=== PATIENT | male | born 1975 | race Caucasian/White ===

== ENCOUNTER 2018-06-02 20:24 | Emergency (ER) | payer OTHER ==
[~2018-06-02] VITALS: Ht 188 cm; Wt 108.9 kg
[~2018-06-02 20:24] MED LIST: DOXY100 PO; HYDACE5 PO
[2018-06-02] MEDS ORDERED: GEMF600 PO (20:58)
[2018-06-02] MEDS ORDERED: METF500C PO ×2 (20:58)
[2018-06-02] MEDS ORDERED: METO25ER PO (20:58)
[2018-06-02] MEDS ORDERED: NAPR500 PO (20:59)
[2018-06-02] MEDS ORDERED: IBUP600 PO (21:17)
[2018-06-02] MEDS ORDERED: HYDR1TAB94 PO (21:17)
== END 2018-06-02 21:31 | disposition home or self-care (01) ==
LOC: ER 20:24
DX: S83.91XA Sprain of unspecified site of right knee, initial encounter (principal); V19.9XXA Pedal cyclist (driver) (passenger) injured in unspecified traffic accident, initial encounter; E11.9 Type 2 diabetes mellitus without complications; I10 Essential (primary) hypertension; E78.5 Hyperlipidemia, unspecified
CPT/HCPCS: 73562-RT; 99283-25

== ENCOUNTER 2019-11-20 20:32 | Emergency (ER) | payer OTHER ==
[~2019-11-20] VITALS: Ht 188 cm; Wt 90.7 kg
[~2019-11-20 20:32] MED LIST changes: +GEMF600 PO; +HYDR1TAB94 PO; +IBUP600 PO; +METF500C PO; +METO25ER PO; +NAPR500 PO
== END 2019-11-20 23:36 | disposition left against medical advice (07) ==
LOC: ER 20:32
DX: Z53.21 Procedure and treatment not carried out due to patient leaving prior to being seen by health care provider (principal)

== ENCOUNTER 2021-07-03 13:23 | Inpatient (IN) | payer OTHER ==
[~2021-07-03] VITALS: Ht 182.9 cm; Wt 90.0 kg
[2021-07-03 13:45] LABS: Calcium, Ionized (POC) 1.55 mmol/L (1.10-1.46); Chloride (POC) 109 mmol/L (98-108); Creatinine (POC) 0.9 mg/dL (0.8-1.3); Glucose (ISTAT POC) >700 mg/dL (70-99); Hemoglobin (POC) 16.7 g/dL (13.5-17.5); Potassium (POC) <2.0 mmol/L (3.5-5.5); Sodium (POC) 147 mmol/L (135-148); Total CO2 (POC) 16 mmol/L (21-32)
[2021-07-03 13:51] LABS: Base Excess Venous -18.3 mmol/L; PCO2 Venous 47.5 mmHg (38-42); pH Blood Venous 7.03 (7.34-7.37)
[2021-07-03 13:53] LABS: Hematocrit 47.4 % (37.0-53.0); Hemoglobin 16.3 g/dL (13.5-17.5); Mean Corpuscular HGB 29.8 pg (26.0-34.0); Mean Corpuscular HGB Conc 34.4 g/dL (31.5-36.5); Mean Corpuscular Volume 87 fL (80-100); Mean Platelet Volume 10.3 fL (9.1-12.4); Platelet Count 486 K/mm3 (150-400); RDW Coefficient Variation 12.4 % (11.7-14.2); RDW Standard Deviation 39.4 fL (35.1-46.3); Red Blood Cell Count 5.47 M/mm3 (4.30-5.90); White Blood Cell Count 23.18 K/mm3 (4.00-11.30)
[2021-07-03 14:22] LABS: Alanine Aminotransfer (ALT/SGP 32 U/L (12-78); Albumin, Blood 2.6 g/dL (3.4-5.0); Albumin/Globulin Ratio 0.4 (0.8-1.8); Alk Phos 331 U/L (50-136); Anion Gap 24 mmol/L (6-16); Aspartate Aminotrans (AST/SGOT 35 U/L (12-37); Bilirubin, Total 0.8 mg/dL (0.1-1.0); Blood Urea Nitrogen 35 mg/dL (8-24); Bun/Creatinine Ratio 44.2 (12.0-20.0); CO2, Blood 13 mmol/L (21-32); Calcium, Blood 11.7 mg/dL (8.5-10.1); Chloride, Blood 106 mmol/L (98-108); Creatinine, Blood 0.79 mg/dL (0.60-1.20); Globulin, Blood 6.2 g/dL (2.2-4.0); Glomerular Filtration Rate >60 (60-); Glucose, Blood 1013 mg/dL (70-99); Potassium, Blood 1.9 mmol/L (3.5-5.5); Sodium, Blood 143 mmol/L (136-145); Total Protein, Blood 8.8 g/dL (6.4-8.2)
[2021-07-03 15:00] LABS: Ethanol (Alcohol), Blood, Med <3 mg/dL; Magnesium, Blood 3.5 mg/dL (1.6-2.4)
[2021-07-03 15:03] LABS: Beta-hydroxybutyrate 106.6 mg/dL (0.2-2.8)
[2021-07-03 15:43] LABS: BAND PERCENT MAN 30 % (0-8); BASOPHILS PERCENT MAN 0 % (0-2); EOSINOPHILS PERCENT MAN 0 % (0-6); LYMPHOCYTES ABSOLUTE MAN 0.69 K/mm3 (0.84-5.20); LYMPHOCYTES PERCENT MAN 3 % (21-46); METAMYELOCYTE ABSOLUTE MAN 1.15 K/mm3 (0.00-0.00); METAMYELOCYTE PERCENT MAN 5 % (0-0); MONOCYTES ABSOLUTE MAN 2.08 K/mm3 (0.16-1.47); MONOCYTES PERCENT MAN 9 % (4-13); MYELOCYTE ABSOLUTE MAN 0.23 K/mm3 (0.00-0.00); MYELOCYTE PERCENT MAN 1 % (0-0); NEUTROPHILS ABSOLUTE MAN 18.77 K/mm3 (1.96-9.15); PROMYELOCYTE ABSOLUTE MAN 0.23 K/mm3 (0.00-0.00); PROMYELOCYTE PERCENT MAN 1 % (0-0); SEG NEUTROPHILS PERCENT MAN 51 % (41-73); TOTAL CELLS COUNTED 100
[2021-07-03 17:09] LABS: Influenza A, PCR NEGATIVE (NEGATIVE); Influenza B, PCR NEGATIVE (NEGATIVE); Resp Syncytial Virus, PCR NEGATIVE (NEGATIVE); SARS-Cov-2 (COVID-19) PCR, MMC NEGATIVE (NEGATIVE)
[2021-07-03 17:36] LABS: Base Excess Venous -12.7 mmol/L; Bicarbonate Venous 15.5 mmol/L (24.0-30.0); PCO2 Venous 29.5 mmHg (38-42); pH Blood Venous 7.28 (7.34-7.37)
--- NOTE | 2021-07-03 17:47 | NUR ---
ADMISSION PATIENT ARRIVED TO UNIT AT 1711 VIA GURNEY WITH 4 RN ASSIST TO BED. PATIENT WITH EYES OPEN, TURNING HEAD TO RIGHT SIDE. THE ONLY VERBAL RESPONSE IS "DON'T DO THAT". PATIENT DOES NOT FOLLOW COMMANDS, NO OTHER PURPOSEFUL MOVEMENTS NOTED. VITALS SINUS TACH 130'S, 02 99% ON RA. VBG OBTAINED WITH PH TRENDING TOWARDS NORMAL RESULT. AWAITING OTHER LABS TO RESULT. BICARB INFUSING AT 350ML/HR, NS BOLUS, KPHOS BAG INFUSING AT 126ML/HR, AND INSULIN AT 3.4 UPON ARRIVAL. POWER GLIDE TO RUE, PIV TO LEFT AC, AND NEW 20G PIV PLACED TO LFA. BRAVO CATHETER WITH 1800ML OUT OF CLEAR, YELLOW URINE. FAMILY WAS NOTIFIED BY ED RN OF PATIENT'S STATUS AND ADMISSION TO ICU. DR. FERNANDEZ TO ROOM, REVIEWED PATIENT'S STATUS AND FLUIDS, RECEIVED ORDERS FOR ATIVAN, FENTANYL AND CHANGED LABS TO EVERY 2 HOURS. CURRENT FLUIDS TO REMAIN THE SAME, A TOTAL OF 3 NS BOLUS TO INFUSE. WILL CONTINUE TO MONITOR PATIENT AND REPORT TO ONCOMING RN.
[2021-07-03 18:22] LABS: Glucose, Blood 884 mg/dL (70-99)
[2021-07-03 18:23] LABS: Anion Gap 20 mmol/L (6-16); Blood Urea Nitrogen 40 mg/dL (8-24); Bun/Creatinine Ratio 46.7 (12.0-20.0); CO2, Blood 16 mmol/L (21-32); Calcium, Blood 10.5 mg/dL (8.5-10.1); Chloride, Blood 115 mmol/L (98-108); Creatinine, Blood 0.86 mg/dL (0.60-1.20); Glomerular Filtration Rate >60 (60-); Glucose, Blood 856 mg/dL (70-99); Potassium, Blood 1.8 mmol/L (3.5-5.5); Sodium, Blood 151 mmol/L (136-145)
[2021-07-03 18:31] LABS: Source, Urine Foley catheter
[2021-07-03 19:00] LABS: Bilirubin, Urine Neg (Neg); Blood, Urine 4+ (Neg); Glucose Qualitative, Urine 4+ (Neg); Ketones, Urine 4+ (Neg); Leukocyte Esterase, Urine 2+ (Neg); Nitrite, Urine Pos (Neg); Protein, Urine 2+ (Neg); Urobilinogen, Urine NORM (Normal)
[2021-07-03 19:02] LABS: Appearance, Urine Clear (Clear); Color, Urine Pale Yellow (P-Yellow)
[2021-07-03 19:04] LABS: Squamous Epithelial Cells Few /hpf (Few)
[2021-07-03 19:05] LABS: Amorphous Light (0-Heavy); Bacteria Few /hpf; Mucus Light (0-Heavy)
[2021-07-03 19:47] LABS: Base Excess Venous -3.7 mmol/L; Bicarbonate Venous 21.9 mmol/L (24.0-30.0); PCO2 Venous 35.2 mmHg (38-42); pH Blood Venous 7.39 (7.34-7.37)
[2021-07-03 20:24] LABS: Anion Gap 15 mmol/L (6-16); Blood Urea Nitrogen 38 mg/dL (8-24); Bun/Creatinine Ratio 50.9 (12.0-20.0); CO2, Blood 21 mmol/L (21-32); Calcium, Blood 9.4 mg/dL (8.5-10.1); Chloride, Blood 123 mmol/L (98-108); Creatinine, Blood 0.75 mg/dL (0.60-1.20); Glomerular Filtration Rate >60 (60-); Glucose, Blood 640 mg/dL (70-99); Phosphorus, Blood 0.8 mg/dL (2.5-4.9); Potassium, Blood 1.7 mmol/L (3.5-5.5); Sodium, Blood 159 mmol/L (136-145)
[2021-07-03 21:08] LABS: Glucose, Blood 608 mg/dL (70-99)
[2021-07-03 21:51] LABS: Base Excess Venous 2.4 mmol/L; Bicarbonate Venous 26.7 mmol/L (24.0-30.0); PCO2 Venous 36.1 mmHg (38-42); pH Blood Venous 7.47 (7.34-7.37)
[2021-07-03 22:27] LABS: Anion Gap 10 mmol/L (6-16); Blood Urea Nitrogen 37 mg/dL (8-24); Bun/Creatinine Ratio 48.2 (12.0-20.0); CO2, Blood 25 mmol/L (21-32); Calcium, Blood 9.5 mg/dL (8.5-10.1); Chloride, Blood 125 mmol/L (98-108); Creatinine, Blood 0.77 mg/dL (0.60-1.20); Glomerular Filtration Rate >60 (60-); Glucose, Blood 557 mg/dL (70-99); Phosphorus, Blood 0.7 mg/dL (2.5-4.9); Potassium, Blood 1.9 mmol/L (3.5-5.5); Sodium, Blood 160 mmol/L (136-145)
--- NOTE | 2021-07-03 23:05 | NUR ---
ASSUMED CARE AT 1900 PT LAYING IN BED WITH HIS EYES OPEN BUT THEY ARE DARTING AROUND THE ROOM; HE DOES NOT MAKE EYE CONTACT; DOES NOT FOLLOW DIRECTIONS; SPEECH UNABLE TO MAKE OUT WORDS MOST OF THE TIME. PAINFUL REACTION AND GRIMICING DURING REPOSITIONING. SPO2 >96% ON RA; RR 30'S. AFEBRILE. HR 130'S. SBP 130-140'S. BRAVO IN PLACE AND DRAINING. SEE SHIFT ASSESSMENT FOR FULL ASSESSMENT DR CEJA CALLED AT 1929 REGARDING BICARB GTT; BICARB D/C AND 1/2 NS STARTED. AT [address] CEJA REGARDING CRITCAL LAB RESULTS OF POTASSIUM, GLUCOSE, AND PHOS; NEW ORDERS PROVIDED FOR 1/2NS WITH 20MEQ OF KCL AND 30MM KPHOS. SEE FLOWSHEET FOR INSULIN TITRATION.
[2021-07-03 23:44] LABS: Bicarbonate Venous 29.6 mmol/L (24.0-30.0); PCO2 Venous 36.6 mmHg (38-42); pH Blood Venous 7.51 (7.34-7.37)
[2021-07-04 00:09] LABS: Anion Gap 8 mmol/L (6-16); Blood Urea Nitrogen 36 mg/dL (8-24); Bun/Creatinine Ratio 47.9 (12.0-20.0); CO2, Blood 28 mmol/L (21-32); Calcium, Blood 9.7 mg/dL (8.5-10.1); Chloride, Blood 126 mmol/L (98-108); Creatinine, Blood 0.75 mg/dL (0.60-1.20); Glomerular Filtration Rate >60 (60-); Glucose, Blood 489 mg/dL (70-99); Phosphorus, Blood 1.1 mg/dL (2.5-4.9); Sodium, Blood 162 mmol/L (136-145)
--- NOTE | 2021-07-04 00:57 | NUR ---
UPDATE CRITICAL LABS POTASSIUM AND SODIUM CALLED TO DR RIVERO. NEW ORDERS PROVIDED FOR 2L LACTATED RINGER BOLUS FOLLOWED BY A LR GTT, 60MEQ OF KCL. PT ALSO HAS FEVER OF 103.0; FAN AND ICE PACKS PLACED ON PT; NEW ORDERS FOR RECTAL TYLENOL AND BLOOD CULTURES PROVIDED. DR RIVERO ALSO STATED THAT ONCE GLUCOSE IS <250 TO START D5 GTT. WILL CONT TO MONITOR.
[2021-07-04 01:33] LABS: Base Excess Venous 5.7 mmol/L; Bicarbonate Venous 29.6 mmol/L (24.0-30.0); PCO2 Venous 34.6 mmHg (38-42); PO2 Venous 181 mmHg (38-42); pH Blood Venous 7.52 (7.34-7.37)
[2021-07-04 02:01] LABS: Anion Gap 7 mmol/L (6-16); Blood Urea Nitrogen 37 mg/dL (8-24); Bun/Creatinine Ratio 47.1 (12.0-20.0); CO2, Blood 28 mmol/L (21-32); Calcium, Blood 9.1 mg/dL (8.5-10.1); Chloride, Blood 129 mmol/L (98-108); Creatinine, Blood 0.79 mg/dL (0.60-1.20); Glomerular Filtration Rate >60 (60-); Glucose, Blood 440 mg/dL (70-99); Phosphorus, Blood 1.3 mg/dL (2.5-4.9); Sodium, Blood 164 mmol/L (136-145)
[2021-07-04 03:54] LABS: Base Excess Venous 5.4 mmol/L; Bicarbonate Venous 28.2 mmol/L (24.0-30.0); PCO2 Venous 44.7 mmHg (38-42); pH Blood Venous 7.43 (7.34-7.37)
[2021-07-04 04:00] LABS: Hematocrit 33.4 % (37.0-53.0); Hemoglobin 12.1 g/dL (13.5-17.5); Mean Corpuscular HGB 29.6 pg (26.0-34.0); Mean Corpuscular HGB Conc 36.2 g/dL (31.5-36.5); Mean Corpuscular Volume 82 fL (80-100); Mean Platelet Volume 9.8 fL (9.1-12.4); Platelet Count 337 K/mm3 (150-400); RDW Standard Deviation 35.7 fL (35.1-46.3); Red Blood Cell Count 4.09 M/mm3 (4.30-5.90); White Blood Cell Count 12.26 K/mm3 (4.00-11.30)
[2021-07-04 04:13] LABS: International Normalized Ratio 1.17; Prothrombin Time Results 12.2 Sec (9.7-11.5)
[2021-07-04 04:21] LABS: Beta-hydroxybutyrate 16.6 mg/dL (0.2-2.8); Magnesium, Blood 2.4 mg/dL (1.6-2.4)
[2021-07-04 04:29] LABS: Base Excess Venous 4.4 mmol/L; Bicarbonate Venous 27.5 mmol/L (24.0-30.0); pH Blood Venous 7.38 (7.34-7.37)
[2021-07-04 04:30] LABS: Alanine Aminotransfer (ALT/SGP 24 U/L (12-78); Albumin, Blood 1.6 g/dL (3.4-5.0); Albumin/Globulin Ratio 0.4 (0.8-1.8); Alk Phos 190 U/L (50-136); Anion Gap 8 mmol/L (6-16); Aspartate Aminotrans (AST/SGOT 30 U/L (12-37); Bilirubin, Total 0.6 mg/dL (0.1-1.0); Blood Urea Nitrogen 35 mg/dL (8-24); Bun/Creatinine Ratio 42.5 (12.0-20.0); CO2, Blood 29 mmol/L (21-32); Calcium, Blood 8.8 mg/dL (8.5-10.1); Chloride, Blood 128 mmol/L (98-108); Creatinine, Blood 0.82 mg/dL (0.60-1.20); Globulin, Blood 4.2 g/dL (2.2-4.0); Glomerular Filtration Rate >60 (60-); Glucose, Blood 421 mg/dL (70-99); Phosphorus, Blood 2.6 mg/dL (2.5-4.9); Potassium, Blood 2.2 mmol/L (3.5-5.5); Sodium, Blood 165 mmol/L (136-145)
[2021-07-04 04:32] LABS: Total Protein, Blood 5.8 g/dL (6.4-8.2)
[2021-07-04 05:35] LABS: BAND PERCENT MAN 24 % (0-8); BASOPHILS PERCENT MAN 0 % (0-2); EOSINOPHILS ABSOLUTE MAN 0.12 K/mm3 (0.00-0.68); EOSINOPHILS PERCENT MAN 1 % (0-6); LYMPHOCYTES ABSOLUTE MAN 0.12 K/mm3 (0.84-5.20); LYMPHOCYTES PERCENT MAN 1 % (21-46); METAMYELOCYTE ABSOLUTE MAN 0.49 K/mm3 (0.00-0.00); METAMYELOCYTE PERCENT MAN 4 % (0-0); MONOCYTES ABSOLUTE MAN 0.49 K/mm3 (0.16-1.47); MONOCYTES PERCENT MAN 4 % (4-13); MYELOCYTE ABSOLUTE MAN 0.12 K/mm3 (0.00-0.00); MYELOCYTE PERCENT MAN 1 % (0-0); NEUTROPHILS ABSOLUTE MAN 10.91 K/mm3 (1.96-9.15); SEG NEUTROPHILS PERCENT MAN 65 % (41-73); TOTAL CELLS COUNTED 100
[2021-07-04 06:49] LABS: Osmolality, Serum 364 mos/KG (275-300)
--- NOTE | 2021-07-04 07:03 | NUR ---
END OF SHIFT SUMMARY PT HAS SLIGHT IMPROVEMENT IN MENTATION; IS FORMING WORDS AND ANSWERING OCCATIONAL QUESTIONS WITH ONE WORD ANSWERS. FENTANYL GIVEN X1 FOR PAIN "EVERYWHERE". MAX TEMP 103; ICE PACKS AND FAN IN PLACE AND HELPING; 101.2. SPO2 >90% ON RA. HR 120-130'S. SBP 110-130. BRAVO IN PLACE WITH 2.9L OUTPUT. INSULIN INFUSING AT 6UNITS/HR. LR INFUSING AT 150ML/HR. LAST BAG OF KCL INFUSING AT THIS TIME. REPORT GIVEN TO WIL Longo
--- NOTE | 2021-07-04 07:07 | NUR ---
Received report from Danielle OLIVIA. Patient laying supine in bed and awake. Speech is slurred and very sensitive to touch as he yells out when barely moving him. His hand have multiple burn grey bilaterally. His LE mottled bilaterally. He is on RA and sats 92-95%. He is ST 120's. He has 16fr torres draining to gravity sruthi colored urine. He has 20 ga Powerglide to JOSE JUAN. He also has 18ga IV to LAC and 20ga Iv to LFA both infusing. He has LR at 150 ml/hr and insulin gtt at units/hr, and K rider.
--- NOTE | 2021-07-04 09:30 | NUR ---
Sister called and gave update. Medicated for pain prior to bath and placed Mepelex dressings to bilateral elbows, Hips and coccyx. Oral care and is upper teeth are very loose and was afraid of them falling out. Dr Poon by and added antibotics and changed fluids. LE's still mottled bilaterally. Monitoring CBG hourly and is coming down moderate rate last one 276.
--- NOTE | 2021-07-04 12:13 | NUR ---
Patient cbg coming down with insulin off and called Dr Poon and will be starting D5 1/2NS with K. Patient still moaning out loud and unable to communicate his needs unless moving him and cusses alot.
[2021-07-04 12:34] LABS: Anion Gap 7 mmol/L (6-16); Blood Urea Nitrogen 33 mg/dL (8-24); Bun/Creatinine Ratio 37.9 (12.0-20.0); CO2, Blood 28 mmol/L (21-32); Chloride, Blood 135 mmol/L (98-108); Creatinine, Blood 0.87 mg/dL (0.60-1.20); Glomerular Filtration Rate >60 (60-); Glucose, Blood 175 mg/dL (70-99); Potassium, Blood 2.2 mmol/L (3.5-5.5); Sodium, Blood 170 mmol/L (136-145)
[2021-07-04 13:21] LABS: U Amphetamine Screen DETECTED; U Barbituate Screen Not Detected; U Benzodiazapine Screen Not Detected; U Buprenorphine Screen Not Detected; U Cannabinoids Screen DETECTED; U Cocaine Screen Not Detected; U Methadone Screen Not Detected; U Methamphetamine Screen DETECTED; U Opiates Screen Not Detected; U Oxycodone Screen Not Detected; U Phencyclidine Screen Not Detected; U Propoxyphene Screen Not Detected
--- NOTE | 2021-07-04 13:30 | NUR ---
CBG coming down and Na going up and swithched to D5 1.2 NS with K and the D51/4NS and started 40meq K riders. BP decreased 80-90's and called Dr Poon and consulted firearms inspector. Patient remains febrile 103.2 and re filled ice bags and fan and started to come down. Remains atchy at 120-130's and hypotensve 80-90's.
--- NOTE | 2021-07-04 15:30 | NUR ---
Patient resting after changing pain meds to dilaudid. Started albumin for hypotnetion and increased fluid. He continues to take drinks of water a cup at a time. Remains tachy 120's, systolic 100-120's.
[2021-07-04 16:49] LABS: Anion Gap 6 mmol/L (6-16); Blood Urea Nitrogen 39 mg/dL (8-24); Bun/Creatinine Ratio 36.1 (12.0-20.0); CO2, Blood 30 mmol/L (21-32); Chloride, Blood 132 mmol/L (98-108); Creatinine, Blood 1.08 mg/dL (0.60-1.20); Glomerular Filtration Rate >60 (60-); Glucose, Blood 273 mg/dL (70-99); Potassium, Blood 2.6 mmol/L (3.5-5.5); Sodium, Blood 168 mmol/L (136-145)
--- NOTE | 2021-07-04 18:30 | NUR ---
Patient fluids currently are D51/4 and finished 40 meq K riders and started K phos 20 meq with 2.6 potassium. Also started NS at 200 ml/hr. Insulin gtt at 2.5 units/hr with CBG mid [address] tyleno suppository. Placed PICC in JOSE JUAN and removed PowerGlide, triple lumen 5Fr. Ingram 1000ml cloudy yellow urine.
[2021-07-04 20:08] LABS: SARS-Cov-2 (COVID-19) PCR, MMC Negative (NEGATIVE)
--- NOTE | 2021-07-04 21:05 | NUR ---
ASSUMED CARE OF JOHNNIE, HE IS ABLE TO ANSWER TO HIS NAME, STATE THE CITY HE LIVES IN AND THE NAME OF THE PRESIDENT. HE IS QUAKING WITH MOANS AND DOES NOT WANT TO BE TOUCHED. AFTER ASSESSMENT, PT GIVEN 0.25MG OF ATIVAN PER MAR FOR AGITATION, CONFUSION. PT CALMS WITH REASSURANCE AND CALMING COMMUNICATION. HIS BLOOD PRESSURE IS ELEVATED, HEART RATE TACHY, NS @ 200ML/HR, D5.025NS @ 150/HR INSULIN @ 2.5 INFUSING PER PICC IN JOSE JUAN. LEFT WRIST WITH PIV. JOHNNIE PICKS AT HIS LEADS AND IS REMINDED TO LEAVE ALONE, TAKES OFF HIS NASAL CANNULA. REMINDED TO LEAVE IT ON. LABS DRAWN PER ORDERS, CBG CHECKED.
[2021-07-04 21:44] LABS: Anion Gap 4 mmol/L (6-16); Blood Urea Nitrogen 40 mg/dL (8-24); Bun/Creatinine Ratio 39.6 (12.0-20.0); CO2, Blood 30 mmol/L (21-32); Calcium, Blood 8.4 mg/dL (8.5-10.1); Chloride, Blood 132 mmol/L (98-108); Creatinine, Blood 1.01 mg/dL (0.60-1.20); Glomerular Filtration Rate >60 (60-); Glucose, Blood 301 mg/dL (70-99); Potassium, Blood 2.6 mmol/L (3.5-5.5); Sodium, Blood 166 mmol/L (136-145)
--- NOTE | 2021-07-04 23:13 | NUR ---
PT CONTINUED TO COMPLAIN OF PAIN ALL OVER, MEDICATED WITH DILAUDID, SEEMED TO CALM HIM DOWN SOME. HE CALMS WITH REASSURANCE AND WORDS.
[2021-07-05 00:47] LABS: Anion Gap 3 mmol/L (6-16); Blood Urea Nitrogen 39 mg/dL (8-24); Bun/Creatinine Ratio 39.7 (12.0-20.0); CO2, Blood 29 mmol/L (21-32); Calcium, Blood 7.9 mg/dL (8.5-10.1); Chloride, Blood 130 mmol/L (98-108); Creatinine, Blood 0.98 mg/dL (0.60-1.20); Glomerular Filtration Rate >60 (60-); Glucose, Blood 286 mg/dL (70-99); Potassium, Blood 2.5 mmol/L (3.5-5.5); Sodium, Blood 162 mmol/L (136-145)
[2021-07-05 04:59] LABS: Anion Gap 4 mmol/L (6-16); Blood Urea Nitrogen 37 mg/dL (8-24); Bun/Creatinine Ratio 39.2 (12.0-20.0); CO2, Blood 28 mmol/L (21-32); Calcium, Blood 8.1 mg/dL (8.5-10.1); Chloride, Blood 131 mmol/L (98-108); Creatinine, Blood 0.95 mg/dL (0.60-1.20); Glomerular Filtration Rate >60 (60-); Glucose, Blood 251 mg/dL (70-99); Potassium, Blood 2.5 mmol/L (3.5-5.5); Sodium, Blood 163 mmol/L (136-145)
--- NOTE | 2021-07-05 05:47 | NUR ---
JOHNNIE HAS CONTINUED TO IMPROVE T/O THE NIGHT. HIS BLOOD SUGARS ARE RUNNING LOW 200'S WITH INSULIN DRIP @ 3U/HR. D50.25NS @150ML, NS @ 200ML/HR. HIS BRAVO PUT OUT AROUND 1.3L AND HE TOOK IN WATER SEVERAL TIMES T/O THE SHIFT. HE HAS BEEN MEDICATED WITH ATIVAN, DILAUDID AND FENTANYL ONCE. HE IS COMPLAINING AND MOANING LESS THIS MORNING. HE IS ABLE TO OPEN HIS EYES AND FOCUS ON WHO IS SPEAKING TO HIM AND MAKE MORE THAN 1 WORD SENTENCES. HE CONTINUES TO NOT BE SURE OF THE MONTH,YEAR,PLACE,SITUATION OR THE LIKE, BUT DOES KNOW THE PRESIDENT AND THE CITY OF [place]. WILL CONTINUE TO MONITOR AND TREAT AND REPORT TO NEXT SHIFT WHEN ABLE.
[2021-07-05 06:56] LABS: Hematocrit 30.5 % (37.0-53.0); Hemoglobin 10.9 g/dL (13.5-17.5); Mean Corpuscular HGB 29.4 pg (26.0-34.0); Mean Corpuscular HGB Conc 35.7 g/dL (31.5-36.5); Mean Corpuscular Volume 82 fL (80-100); Mean Platelet Volume 9.9 fL (9.1-12.4); NRBC Auto 0.6 /100 WBC (0.0-0.2); Platelet Count 222 K/mm3 (150-400); RDW Coefficient Variation 13.1 % (11.7-14.2); RDW Standard Deviation 39.1 fL (35.1-46.3); Red Blood Cell Count 3.71 M/mm3 (4.30-5.90)
--- NOTE | 2021-07-05 07:05 | NUR ---
Receieved report from Desiree OLIVIA. Patient rest with continued moaning. He is mostly verbal with periods of slurring word. He is able to communicate mostly of what he wants. He sats 88-92 on RA. He has PICC line to JOSE JUAN and dressing intact and site WNL's and is infuising D51/4 at 150 ml/hr, NS at 200 ml/hr, Regular Insulin at 3 units/hr, and K rider 20 meq of 40meq. He has 16 Fr Temp torres draining to gravity and temp of 100.8. LE's still slightly mottled. Mepelex dressings to hips, elbows, coccyx on paul prominences. He has small round scars all over both hands.Oral care difficult to do as most of his teeth to upper mouth are very loose and affraid thay will fall out and lower care done.
[2021-07-05 07:26] LABS: BAND PERCENT MAN 39 % (0-8); BASOPHILS PERCENT MAN 2 % (0-2); EOSINOPHILS PERCENT MAN 0 % (0-6); LYMPHOCYTES ABSOLUTE MAN 1.23 K/mm3 (0.84-5.20); LYMPHOCYTES PERCENT MAN 8 % (21-46); METAMYELOCYTE ABSOLUTE MAN 0.46 K/mm3 (0.00-0.00); METAMYELOCYTE PERCENT MAN 3 % (0-0); MONOCYTES ABSOLUTE MAN 0.61 K/mm3 (0.16-1.47); MONOCYTES PERCENT MAN 4 % (4-13); MYELOCYTE ABSOLUTE MAN 0.46 K/mm3 (0.00-0.00); MYELOCYTE PERCENT MAN 3 % (0-0); NEUTROPHILS ABSOLUTE MAN 12.32 K/mm3 (1.96-9.15); SEG NEUTROPHILS PERCENT MAN 41 % (41-73); TOTAL CELLS COUNTED 100
[2021-07-05 08:54] LABS: Blood Urea Nitrogen 35 mg/dL (8-24); Bun/Creatinine Ratio 36.3 (12.0-20.0); CO2, Blood 28 mmol/L (21-32); Calcium, Blood 7.8 mg/dL (8.5-10.1); Chloride, Blood 131 mmol/L (98-108); Creatinine, Blood 0.97 mg/dL (0.60-1.20); Glomerular Filtration Rate >60 (60-); Glucose, Blood 224 mg/dL (70-99); Phosphorus, Blood 1.7 mg/dL (2.5-4.9); Potassium, Blood 2.8 mmol/L (3.5-5.5); Vancomycin, Trough 17.6 ug/mL (5.0-10.0)
[2021-07-05 08:56] LABS: Anion Gap 4 mmol/L (6-16); Sodium, Blood 163 mmol/L (136-145)
[2021-07-05 09:27] LABS: Base Excess Venous 7.1 mmol/L; Bicarbonate Venous 29.8 mmol/L (24.0-30.0); PCO2 Venous 40.6 mmHg (38-42); PO2 Venous 34.1 mmHg (38-42); pH Blood Venous 7.48 (7.34-7.37)
--- NOTE | 2021-07-05 09:30 | NUR ---
Patient remains on K riders and K phos. NS at 200ml/hr will continue until bag is finished. Will stop Insulin gtt after giving Glargine and continue D51/4NS. Patient more awake and moaning more.
--- NOTE | 2021-07-05 11:37 | NUR ---
Medicated for pain, Repositioned. US on way to do abdomen. Remains Tachy and hypertensive. NS remains at 200ml/hr and Insulin is off and D51/4NS continues at 150ml/hr. last CBG 211
[2021-07-05 12:58] LABS: Alk Phos 205 U/L (50-136); Bilirubin, Direct 0.7 mg/dL (0.0-0.3); Bilirubin, Indirect 0.5 mg/dL (0.1-0.7); Bilirubin, Total 1.2 mg/dL (0.1-1.0); Blood Urea Nitrogen 36 mg/dL (8-24); Bun/Creatinine Ratio 34.3 (12.0-20.0); CO2, Blood 26 mmol/L (21-32); Calcium, Blood 7.7 mg/dL (8.5-10.1); Chloride, Blood 129 mmol/L (98-108); Creatinine, Blood 1.05 mg/dL (0.60-1.20); Glomerular Filtration Rate >60 (60-); Glucose, Blood 303 mg/dL (70-99); Lactate Dehydrogenase (Ld),Bld 525 U/L (100-240); Phosphorus, Blood 2.8 mg/dL (2.5-4.9); Potassium, Blood 3.2 mmol/L (3.5-5.5)
[2021-07-05 13:04] LABS: Anion Gap 6 mmol/L (6-16); Sodium, Blood 161 mmol/L (136-145)
--- NOTE | 2021-07-05 13:30 | NUR ---
Patient on D5 100ml/hr and D51/4 stopped and changed to LR 200 ml/hr instead of NS. Patient is alittle more aklert and following directions. Continue to medicate per MAR for ongoing pain. US results to Dr Fisher. Labs continue to draw Q4.
--- NOTE | 2021-07-05 14:30 | NUR ---
Patient remains on RA and sats >90%. He has LR at 200 ml/hr, D5 at 100 ml/hr. No other changes to Neuro. CBG's covered with SS and long acting. Gave Lopressor per MAR and dropped HR 116, and systolic 120 for brief time.
[2021-07-05 16:49] LABS: Anion Gap 6 mmol/L (6-16); Blood Urea Nitrogen 38 mg/dL (8-24); Bun/Creatinine Ratio 36.2 (12.0-20.0); CO2, Blood 26 mmol/L (21-32); Calcium, Blood 7.8 mg/dL (8.5-10.1); Chloride, Blood 129 mmol/L (98-108); Creatinine, Blood 1.05 mg/dL (0.60-1.20); Glomerular Filtration Rate >60 (60-); Glucose, Blood 397 mg/dL (70-99); Potassium, Blood 3.3 mmol/L (3.5-5.5); Sodium, Blood 161 mmol/L (136-145)
--- NOTE | 2021-07-05 18:13 | NUR ---
D5 reduced to 50 ml/hr, LR remains at 200 ml/hr and started 1st 20 meq of 60meq of potassium for 3.3 K. He has been drinking ensure 8 oz about evry few hours for nutrition and make up for reduced D5. He remaisn on RA and sats >90%. Medicated for pain with dilaudid 0.5 mg and he is resting quietly. Started on PO norvasc and tolerated two pills with ensure. He is clearing and is easily understandable most of the time.
--- NOTE | 2021-07-05 20:00 | NUR ---
ASSUMED CARE OF PATIENT, RECLINING IN BED, MOANS WHEN SPOKEN TO. OXYGEN VIA NASAL CANNULA, IV LR @ 200 AND D5W @ 50 WITH K+RIDER INFUSING. BRAVO TO GRAVITY DRAINAGE, JAKI RETURN. ABDOMEN TENDER TO PALPATION, LUNGS CLEAR, PANTING RESPIRATIONS, SATS >94%, TEMP 99.0, NOT ANSWERING QUESTIONS, CAN'T IDENTIFY PLACE,TIME,SITUATION. FAMILY ZOOM MEETING, HE SAYS TO FAMILY "HI" AND "I LOVE YOU", CAN'T KEEP EYES OPEN TO LOOK AT FAMILY. MUTTERS, MOSTLY UNINTELLIGIBLE. CALL SHORT. PT TREMBLING WHEN HAND IS PLACED ON FOREHEAD. HOLLERS OUT WHEN TURNED AND REPOSITIONED.
[2021-07-05 21:28] LABS: Anion Gap 6 mmol/L (6-16); Blood Urea Nitrogen 43 mg/dL (8-24); Bun/Creatinine Ratio 39.4 (12.0-20.0); CO2, Blood 26 mmol/L (21-32); Calcium, Blood 7.8 mg/dL (8.5-10.1); Chloride, Blood 128 mmol/L (98-108); Creatinine, Blood 1.09 mg/dL (0.60-1.20); Glomerular Filtration Rate >60 (60-); Glucose, Blood 452 mg/dL (70-99); Potassium, Blood 3.7 mmol/L (3.5-5.5); Sodium, Blood 160 mmol/L (136-145)
--- NOTE | 2021-07-05 22:00 | NUR ---
CALLED IN FOR UPDATE, CHANGE IN IV FLUIDS ORDERED. IV 1/2NS NOW AT 200ML/HR ONLY. PT ABLE TO SIP SOME GLUCERNA AND SOME WATER. MEDICATED FOR PAIN AND FOR QUAKING. WILL CONTINUE TO MONITOR.
--- NOTE | 2021-07-06 00:38 | NUR ---
JOHNNIE IS LESS VOCAL, ONLY MOANING. CRIES OUT WHEN REPOSITIONED. NOT ANSWERING ANY QUESTIONS. NO LONGER WANTING WATER. WILL CONTINUE TO MONITOR.
--- NOTE | 2021-07-06 04:57 | NUR ---
JOHNNIE HAS HAD HIS D5 TURNED OFF AND 1/2NS GOING SINCE 2300, HE HASN'T HAD ANY GLUCERNA OR WATER SINCE MIDNIGHT. HAD TO DRAW MULTIPLE LABS SO SPOT CHECK CBG DONE 457, WILL AWAIT LAB RESULTS AND PHONE FOR UPDATE. JOHNNIE IS NO LONGER RESPONDING VERBALLY TO ME, HE GROANS AND MOANS.
[2021-07-06 05:00] LABS: Hematocrit 37.3 % (37.0-53.0); Hemoglobin 12.6 g/dL (13.5-17.5); Mean Corpuscular HGB Conc 33.8 g/dL (31.5-36.5); Mean Corpuscular Volume 86 fL (80-100); Mean Platelet Volume 10.1 fL (9.1-12.4); NRBC ABSOLUTE 0.13 K/mm3 (0.00-0.02); NRBC Auto 1.4 /100 WBC (0.0-0.2); Platelet Count 181 K/mm3 (150-400); RDW Coefficient Variation 13.9 % (11.7-14.2); Red Blood Cell Count 4.34 M/mm3 (4.30-5.90); White Blood Cell Count 9.43 K/mm3 (4.00-11.30)
[2021-07-06 05:27] LABS: Anion Gap 9 mmol/L (6-16); Blood Urea Nitrogen 53 mg/dL (8-24); Bun/Creatinine Ratio 44.5 (12.0-20.0); CO2, Blood 25 mmol/L (21-32); Calcium, Blood 7.7 mg/dL (8.5-10.1); Chloride, Blood 128 mmol/L (98-108); Creatinine, Blood 1.19 mg/dL (0.60-1.20); Glomerular Filtration Rate >60 (60-); Glucose, Blood 579 mg/dL (70-99); Phosphorus, Blood 3.3 mg/dL (2.5-4.9); Potassium, Blood 3.9 mmol/L (3.5-5.5); Sodium, Blood 162 mmol/L (136-145)
[2021-07-06 05:39] LABS: BAND PERCENT MAN 23 % (0-8); BASOPHILS PERCENT MAN 0 % (0-2); EOSINOPHILS PERCENT MAN 0 % (0-6); LYMPHOCYTES ABSOLUTE MAN 1.32 K/mm3 (0.84-5.20); LYMPHOCYTES PERCENT MAN 14 % (21-46); METAMYELOCYTE ABSOLUTE MAN 0.09 K/mm3 (0.00-0.00); METAMYELOCYTE PERCENT MAN 1 % (0-0); MONOCYTES ABSOLUTE MAN 0.18 K/mm3 (0.16-1.47); MONOCYTES PERCENT MAN 2 % (4-13); MYELOCYTE ABSOLUTE MAN 0.18 K/mm3 (0.00-0.00); MYELOCYTE PERCENT MAN 2 % (0-0); NEUTROPHILS ABSOLUTE MAN 7.63 K/mm3 (1.96-9.15); SEG NEUTROPHILS PERCENT MAN 58 % (41-73); TOTAL CELLS COUNTED 100
--- NOTE | 2021-07-06 05:57 | NUR ---
LAB RESULTS BACK, BLOOD SUGAR CLIMBING, NOTIFIED, RESTARTED INSULIN DRIP. PT STILL NOT MAKING WORDS, ONLY MOANS AND GROANS. EVERY WHERE IS PAINFUL WHEN TOUCHED. GOOD URINE OUTPUT NEARLY 2.5L, HEART RATE 120'S. BP ELEVATED, PT CONTINUES WITH TREMORS. WARM TO THE TOUCH.
--- NOTE | 2021-07-06 12:30 | NUR ---
YADI DR RUIZ AT BEDSIDE. PT PLACED ON 6L O2 NC. PT SEDATED WITH 50 MCG OF FENTANYL AND 2 MG VERSED IV AT 1200. PT TOLERATED SCOPE WELL. PT BECAME RESTLESS DURING PROCEDURE. ADDITIONAL 25 MCG OF FENTANYL GIVEN AT [address] RUIZ. YADI COMPLETED AT 1217. VITAL SIGNS REMAINED STABLE. O2 VIA NC TITRATED DOWN TO 2L AT THIS TIME. WILL CONTINUE TO MONITOR.
[2021-07-06 14:43] LABS: Anion Gap 2 mmol/L (6-16); Blood Urea Nitrogen 52 mg/dL (8-24); Bun/Creatinine Ratio 45.2 (12.0-20.0); CO2, Blood 30 mmol/L (21-32); Calcium, Blood 8.1 mg/dL (8.5-10.1); Chloride, Blood 137 mmol/L (98-108); Creatinine, Blood 1.15 mg/dL (0.60-1.20); Glomerular Filtration Rate >60 (60-); Glucose, Blood 243 mg/dL (70-99); Potassium, Blood 3.7 mmol/L (3.5-5.5); Sodium, Blood 169 mmol/L (136-145)
--- NOTE | 2021-07-06 16:54 | NUR ---
SHIFT SUMMARY NO ACUTE CHANGES THIS SHIFT. PT REMAINS ENCEPHALOPATIC. PT MOANS OUT TO NOXIOUS AND VERBAL STIMULI, BUT DOES NOT SPEAK ANY SENSICAL WORDS. PT UNABLE TO FOLLOW ANY COMMANDS. VITAL SIGNS STABLE. PT ON ROOM AIR AT THIS TIME. PT REMAINS NPO THIS SHIFT DUE TO MENTATION. PICC TO JOSE JUAN REMAINS C/D/I. FLUIDS CHANGED THIS AFTERNOON, PT CURRENTLY WITH LR INFUSING AT 200 ML/HR AND D5W AT 100 ML/HR. INSULIN GTT INFUSING AT 2 UNITS/HR AT THIS TIME. BRAVO TEMP PROBE REMAINS IN PLACE WITH CLEAR YELLOW URINE OUTPUT NOTED. SKIN ASSESSMENT REMAINS UNCHANGED. PT MOTHER AND SISTER UPDATED VIA PHONE THIS SHIFT. VITAL SIGNS STABLE. WILL CONTINUE TO MONITOR AND REPORT OFF TO ONCOMING RN.
[2021-07-06 18:30] LABS: Anion Gap 1 mmol/L (6-16); Blood Urea Nitrogen 49 mg/dL (8-24); CO2, Blood 31 mmol/L (21-32); Calcium, Blood 8.1 mg/dL (8.5-10.1); Chloride, Blood 137 mmol/L (98-108); Creatinine, Blood 1.14 mg/dL (0.60-1.20); Glomerular Filtration Rate >60 (60-); Glucose, Blood 191 mg/dL (70-99); Potassium, Blood 3.5 mmol/L (3.5-5.5); Sodium, Blood 169 mmol/L (136-145)
[2021-07-06 22:37] LABS: Anion Gap 1 mmol/L (6-16); Blood Urea Nitrogen 47 mg/dL (8-24); Bun/Creatinine Ratio 42.7 (12.0-20.0); CO2, Blood 31 mmol/L (21-32); Chloride, Blood 138 mmol/L (98-108); Glomerular Filtration Rate >60 (60-); Glucose, Blood 197 mg/dL (70-99); Potassium, Blood 3.2 mmol/L (3.5-5.5); Sodium, Blood 170 mmol/L (136-145)
--- NOTE | 2021-07-07 01:49 | NUR ---
JOHNNIE CONTINUES TO BE "FRIGHTENED" BY ANY TOUCH OR STIMULI. HE CRIES OUT WHEN HIS BLOOD SUGARS ARE TAKEN, HE RUNS HIS EYES BACK AND FORTH FROM LEFT TO RIGHT SEVERAL TIMES. HE DOESN'T SHIFT HIS HEAD TO THE LEFT WHEN ON THAT SIDE OF HIM. HIS HEART RATE REMAINS IN THE 130'S, OXYGEN SAT 90-92%, BP ELEVATED, RESPIRA- TORY RATE 30'S. BLOOD SUGARS REMAIN STABLE BETWEEN 160-190 WITH THE D5W @ 100 AND THE LR @ 200ML/HR. INSULIN REMAINS AT 2U/HR.
[2021-07-07 02:10] LABS: Hematocrit 30.9 % (37.0-53.0); Hemoglobin 10.3 g/dL (13.5-17.5); Mean Corpuscular HGB Conc 33.3 g/dL (31.5-36.5); Mean Corpuscular Volume 87 fL (80-100); NRBC ABSOLUTE 0.06 K/mm3 (0.00-0.02); NRBC Auto 0.9 /100 WBC (0.0-0.2); Platelet Count 152 K/mm3 (150-400); RDW Coefficient Variation 14.2 % (11.7-14.2); RDW Standard Deviation 44.8 fL (35.1-46.3); Red Blood Cell Count 3.55 M/mm3 (4.30-5.90); White Blood Cell Count 6.88 K/mm3 (4.00-11.30)
[2021-07-07 02:26] LABS: Phosphorus, Blood 2.5 mg/dL (2.5-4.9)
[2021-07-07 02:28] LABS: Anion Gap 1 mmol/L (6-16); Blood Urea Nitrogen 45 mg/dL (8-24); Bun/Creatinine Ratio 40.2 (12.0-20.0); CO2, Blood 31 mmol/L (21-32); Calcium, Blood 8.1 mg/dL (8.5-10.1); Chloride, Blood 138 mmol/L (98-108); Creatinine, Blood 1.12 mg/dL (0.60-1.20); Glomerular Filtration Rate >60 (60-); Glucose, Blood 214 mg/dL (70-99); Potassium, Blood 3.2 mmol/L (3.5-5.5); Sodium, Blood 170 mmol/L (136-145)
[2021-07-07 02:45] LABS: BAND PERCENT MAN 16 % (0-8); BASOPHILS PERCENT MAN 0 % (0-2); EOSINOPHILS ABSOLUTE MAN 0.06 K/mm3 (0.00-0.68); EOSINOPHILS PERCENT MAN 1 % (0-6); LYMPHOCYTES ABSOLUTE MAN 0.89 K/mm3 (0.84-5.20); LYMPHOCYTES PERCENT MAN 13 % (21-46); METAMYELOCYTE ABSOLUTE MAN 0.06 K/mm3 (0.00-0.00); METAMYELOCYTE PERCENT MAN 1 % (0-0); MONOCYTES ABSOLUTE MAN 0.34 K/mm3 (0.16-1.47); MONOCYTES PERCENT MAN 5 % (4-13); SEG NEUTROPHILS PERCENT MAN 64 % (41-73); TOTAL CELLS COUNTED 100
--- NOTE | 2021-07-07 04:21 | NUR ---
JOHNNIE WAS ABLE TO TAKE IN SOME WATER WITH THE STRAW, ANSWER ME ABOUT MOUTHWASH TO HELP MOISTEN HIS MOUTH, HE STILL "FRETS" WHEN SOMEONE NEARS HIM, "AAAHHH" REPETITIVELY. HE PULLS AT HIS LEADS AND IS GENTLY REMINDED TO LEAVE THEM ON. HE UTTERS, "I WILL". CONTINUED REORIENTATION AND REASSURANCE GIVEN WHEN ENTERING ROOM.
--- NOTE | 2021-07-07 06:27 | NUR ---
JOHNNIE HAS BEEN STABLE ON HIS FLUIDS, HE CONTINUES ON THE D5W @ 100, LR @ 200, AND 2U INSULIN. THE INSULIN HASN'T BEEN TITRATED, SUGARS HAVE BEEN 160-200. HE HAS BEEN ABLE TO FORM A COUPLE OF WORDS, OTHERWISE MOANS AND CRIES OUT WHEN MOVED OR TOUCHED. URINE OUTPUT >2.5L. WILL CONTINUE TO MONITOR AND REPORT TO NEXT SHIFT.
[2021-07-07 07:19] LABS: Anion Gap 1 mmol/L (6-16); Blood Urea Nitrogen 48 mg/dL (8-24); Bun/Creatinine Ratio 43.6 (12.0-20.0); CO2, Blood 31 mmol/L (21-32); Chloride, Blood 138 mmol/L (98-108); Glomerular Filtration Rate >60 (60-); Glucose, Blood 218 mg/dL (70-99); Potassium, Blood 3.1 mmol/L (3.5-5.5); Sodium, Blood 170 mmol/L (136-145)
[2021-07-07 11:13] LABS: Blood Urea Nitrogen 44 mg/dL (8-24); Bun/Creatinine Ratio 41.1 (12.0-20.0); CO2, Blood 29 mmol/L (21-32); Calcium, Blood 7.6 mg/dL (8.5-10.1); Chloride, Blood 139 mmol/L (98-108); Creatinine, Blood 1.07 mg/dL (0.60-1.20); Glomerular Filtration Rate >60 (60-); Glucose, Blood 252 mg/dL (70-99); Potassium, Blood 3.1 mmol/L (3.5-5.5)
[2021-07-07 11:15] LABS: Anion Gap 3 mmol/L (6-16); Sodium, Blood 171 mmol/L (136-145)
--- NOTE | 2021-07-07 12:20 | NUR ---
AOX2, DIFFICULT TO ASSESS NEURO D/T AGITATION/GARBLED SPEECH, PUPILS 3MM BRISK, FOLLOWS COMMANDS AT TIMES, MOVES ALL 4 EXTREMETIES BUT WEAK, ST 130S, HTN 130S, LUNGS CLEAR/DIM, ON RA VS 2L NC WHEN AGITATED PATIENT DESATURATES 80S, MULTIPLE FLUIDS CHANGED TO MANAGE NA, NA CRITICALS OF 170/171, CT ABDOMEN PELVIS/HEAD COMPLETED, CBGS 170-220S MANAGED WITH INSULIN GTT, NG PLACED TO SUCTION, WILL CONTINUE TO MONITOR.
[2021-07-07 14:39] LABS: Albumin, Blood 1.2 g/dL (3.4-5.0); Anion Gap 5 mmol/L (6-16); Blood Urea Nitrogen 47 mg/dL (8-24); Bun/Creatinine Ratio 43.9 (12.0-20.0); CO2, Blood 28 mmol/L (21-32); Calcium, Blood 7.5 mg/dL (8.5-10.1); Chloride, Blood 137 mmol/L (98-108); Creatinine, Blood 1.07 mg/dL (0.60-1.20); Glomerular Filtration Rate >60 (60-); Glucose, Blood 227 mg/dL (70-99); Phosphorus, Blood 3.1 mg/dL (2.5-4.9); Sodium, Blood 170 mmol/L (136-145)
--- NOTE | 2021-07-07 16:10 | NUR ---
Pt resting in bed with his eyes closed. Pt appears comfortable with no S/S of distress at this time. Spoke with callisthenics instructor Monie and discussed case. Monie reports a decision maker should be lined out for futurre possible decisions. Sister Sheryl has been the main contact at this point. Pt has children and a mother as well. Called and spoke with Pt's sister Sheryl. Provided update and engaged in discussion regarding having a healthcare decision maker if Pt's condition deteriorates. Sheryl reports Pt has 3 children ranging from 19-29. Contact information will be provided below. Sheryl reports she has been relaying information to family. Instructed on the order of decision making according to ORS 127.635 (2). Order goes as following guardian or medical MPOA, Spouse, Majority of children, Either parent, then majority of siblings. Sheryl inquires about deferrement process if children are unable to make any decisions. Instructed that children would need to verbally make staff aware of their wishes to deferr and mother would also need to defer to Sheryl. Continued therapeutic listening and answered questions. Sheryl expresses appreciation and report no other concerns at this time. Oldest child-son Rudy Garcia [phone] Middle child-son Ruslan Garcia [phone] Youngest child-daughter Enoch Garcia [phone] Mother Cinthya (goes by Teresita) [phone] Sister Sheryl [phone] Sheryl reports best way to contact mother is by calling Sheryl's phone. Relayed information to Primary RN. Palliative Care will remain available.
--- NOTE | 2021-07-07 17:28 | NUR ---
AOX2 BEST ASSESSMENT, DISORIENTED TO EVENT/TIME, FOLLOWS COMMMANDS WHEN WANTS TO, MOVES ALL 4 EXTREMETIES BUT WEAK, LUNGS CLEAR ON RA MOST OF DAY, 2L NC WHEN AGITATED, COMPLAINS OF GENERALIZED PAIN U/T LOCALIZE PAIN, 0.5MG DILAUDID X2 GIVEN WITH MODEST NONVERBAL IMPROVMENTS, BP WNL, ST 110-130S WORSE WITH AGITATION, BRAVO DRAINING CLEAR/YELLOW OUTPUT, NO BM, LACTULOSE GIVEN, CBGS RANGE FROM 150-220S, INSULIN GTT TITRATED TO CBG, FEBRILE TMAX 101.2, TYLENOL 500MG/ICE PACKS/FAN APPLIED WITH RESOLUTION IN FEVER, NA REMAINS HIGH 170, IVMF CHANGED TO D5W, CONSULTING MD PRUETT REGARDING NA, K LOW 3.0, REPLACING WITH 20MEQ IV, CT ABDOMEN/PELVIS, ABSCESS PRESENT, IR U/T DRAIN, ABX CHANGE, NG PLACED L NARE TO DECOMPRESS BOWELS/PROVIDE NUTRITION/MEDS, WILL CONTINUE TO MONITOR AND REPORT TO NIGHT RN.
--- NOTE | 2021-07-07 21:55 | NUR ---
ASSUMED CARE AT 1900 CRITICAL RESULTS SODIUM CALLED TO DR PRUETT. NEW ORDERS PROVIDED TO INFUSING 30MEQ OF KCL, INCREASE D5W TO 350ML/HR, FOLLOWED BY SODIUM LAB DRAW AT 2200 AND RESULTED TO HIM BY 2300. PT LAYING IN BED AND IS RESPONSIVE TO VERBAL STIMULI BUT DIFFICULT TO UNDERSTAND AT TIMES; WAS CLEAR WHEN STATING THAT HE WAS IN THE HOSPITAL AND WHO HE WAS; UNSRUE OF REASON FOR ADMISSION AND TIME; FOLLOWS DIRECTIONS WEAKLY; OCCATIONALLY MOANS IN PAIN; VERY SENSATIVE TO TOUCH. SPO2 >97% ON RA. HR 100-120'S. SBP 130'S. NG IN PLACE TO LIS. BRAVO IN PLACE AND DRAINING TO GRAVITY; Q1HR OUTPUT MEASURED. INSULIN INFUSING AT 2UNITS/HR; SEE FLOWSHEET FOR TITATION. SEE SHIFT ASSESSMENT FOR FULL ASSESSMENT.
--- NOTE | 2021-07-07 22:48 | NUR ---
UPDATE DR PRUETT CALLED REGARDING CRITIAL NA 165. NEW ORDERS FOR LABS IN THE AM.
--- NOTE | 2021-07-08 01:41 | NUR ---
UPDATE PT IS MORE ALERT AND ASKING QUESTIONS NOT KNOWNING WHERE HE WAS OR WHAT IS GOING ON. PT SPEECH MUCH MORE CLEAR AND RESPONDING APPROPRIATLY. LUAN (SISTER) CALLED EARLIER FOR AN UPDATE.
[2021-07-08 03:57] LABS: Hematocrit 28.1 % (37.0-53.0); Hemoglobin 9.1 g/dL (13.5-17.5); Mean Corpuscular HGB 29.4 pg (26.0-34.0); Mean Corpuscular HGB Conc 32.4 g/dL (31.5-36.5); Mean Corpuscular Volume 91 fL (80-100); Mean Platelet Volume 10.5 fL (9.1-12.4); NRBC ABSOLUTE 0.03 K/mm3 (0.00-0.02); NRBC Auto 0.5 /100 WBC (0.0-0.2); Platelet Count 98 K/mm3 (150-400); RDW Coefficient Variation 14.6 % (11.7-14.2); RDW Standard Deviation 48.2 fL (35.1-46.3); White Blood Cell Count 5.59 K/mm3 (4.00-11.30)
[2021-07-08 04:10] LABS: Albumin, Blood 1.1 g/dL (3.4-5.0); Anion Gap 4 mmol/L (6-16); Blood Urea Nitrogen 42 mg/dL (8-24); Bun/Creatinine Ratio 39.6 (12.0-20.0); CO2, Blood 28 mmol/L (21-32); Chloride, Blood 127 mmol/L (98-108); Creatinine, Blood 1.06 mg/dL (0.60-1.20); Glomerular Filtration Rate >60 (60-); Glucose, Blood 261 mg/dL (70-99); Phosphorus, Blood 3.3 mg/dL (2.5-4.9); Potassium, Blood 3.1 mmol/L (3.5-5.5); Sodium, Blood 159 mmol/L (136-145)
--- NOTE | 2021-07-08 04:18 | NUR ---
UPDATE NOTIFIED DR PRUETT REGARDING AM LAB RESULTS HE INSTRUCTED DURING PREVIOUS PHONE CALL. NEW ORDERS PROVIDED FOR 20MEQ OF KCL, CHANGE THE RATE OF D5W FROM 350 TO 250, AND HAVE THE NEXT SODIUM LAB DRAW BE AT 1000 AND THE RESULTS CALLED TO DR PRUETT BY 1100.
[2021-07-08 04:51] LABS: BAND PERCENT MAN 22 % (0-8); BASOPHILS PERCENT MAN 0 % (0-2); EOSINOPHILS PERCENT MAN 0 % (0-6); LYMPHOCYTES % ATYPICAL MANUAL 3 % (0-0); LYMPHOCYTES PERCENT MAN 6 % (21-46); MONOCYTES ABSOLUTE MAN 0.16 K/mm3 (0.16-1.47); MONOCYTES PERCENT MAN 3 % (4-13); NEUTROPHILS ABSOLUTE MAN 4.91 K/mm3 (1.96-9.15); SEG NEUTROPHILS PERCENT MAN 66 % (41-73); TOTAL CELLS COUNTED 100
--- NOTE | 2021-07-08 05:12 | NUR ---
UPDATE WHEN AWAKE PT IS POLITE TO STAFF BUT YELLS OUT IN PAIN DURING REPOSITIONING AND ASSESSING; ORIENTED X2. PT STATES THAT HE "NEEDS METH" AND THAT HE IS "WITHDRAWING RIGHT NOW" FOLLOWED BY STATING THAT HE IS "GOING TO FREAK OUT"; HE ALSO ASKED IF HE WAS PARALIZED BECAUSE HE IS STRUGGLING MOVING HIS ARMS. PRN ATIVAN AVAILABLE, GIVEN, AND HELPFUL.
--- NOTE | 2021-07-08 05:58 | NUR ---
END OF SHIFT SUMMARY NO ACUTE EVENTS OVERNIGHT. PT ALERT/ORIENTED X2 RIGHT NOW. PRN DILAUDID GIVEN X2 DUE TO PAIN "EVERYWHERE" ESPECIALLY DURING REPOSITIONING; ATIVAN GIVEN ONCE FOR INCREASED RESTLESSNESS, SEE PREVIOUS NOTE. AFEBILE. SPO2 >96% ON RA. HR 110-120. SBP 120-130'S. NG TO LIS; CLAMPED FOR MED AND PO WATER; PT TOLERATED FIRST CUP OF WATER WELL AND WAS ABLE TO HAVE A STRONG COUGH; SECOND CUP OF WATER PT HAD MORE OF A WEAK COUGH. BRAVO IN PLACE AND DRAINING TO GRAVITY; Q1HR I'S AND O'S IN PLACE. INSULIN INFUSING AT 4UNITS/HR; D5W INFUSING AT 250ML/HR; KCL INFUSING. WILL REPORT TO AM RN WHEN AVAILABLE.
--- NOTE | 2021-07-08 07:01 | NUR ---
UPDATE PT BEGAN TO DESATURATE TO LOW 80'S, 5L NC IN THE MOUTH PLACED AND SPO2 INCREASED TO >95% AROUND 0650. DURING SHIFT CHANGE PT IS NOW UNRESPONSIVE TO PAIN, AM CORWIN FARR CALLED .
[2021-07-08 07:29] LABS: Hematocrit 32.5 % (37.0-53.0); Mean Corpuscular HGB 29.1 pg (26.0-34.0); Mean Corpuscular HGB Conc 30.8 g/dL (31.5-36.5); Mean Corpuscular Volume 95 fL (80-100); Mean Platelet Volume 10.2 fL (9.1-12.4); NRBC Auto 1.3 /100 WBC (0.0-0.2); Platelet Count 107 K/mm3 (150-400); RDW Coefficient Variation 14.6 % (11.7-14.2); RDW Standard Deviation 50.7 fL (35.1-46.3); Red Blood Cell Count 3.44 M/mm3 (4.30-5.90); White Blood Cell Count 7.64 K/mm3 (4.00-11.30)
[2021-07-08 07:57] LABS: BAND PERCENT MAN 9 % (0-8); BASOPHILS PERCENT MAN 0 % (0-2); EOSINOPHILS PERCENT MAN 0 % (0-6); LYMPHOCYTES ABSOLUTE MAN 1.45 K/mm3 (0.84-5.20); LYMPHOCYTES PERCENT MAN 19 % (21-46); MONOCYTES ABSOLUTE MAN 0.61 K/mm3 (0.16-1.47); MONOCYTES PERCENT MAN 8 % (4-13); NEUTROPHILS ABSOLUTE MAN 5.57 K/mm3 (1.96-9.15); SEG NEUTROPHILS PERCENT MAN 64 % (41-73); TOTAL CELLS COUNTED 100
[2021-07-08 08:06] LABS: Alanine Aminotransfer (ALT/SGP 57 U/L (12-78); Albumin, Blood 1.2 g/dL (3.4-5.0); Albumin/Globulin Ratio 0.3 (0.8-1.8); Alk Phos 757 U/L (50-136); Anion Gap 2 mmol/L (6-16); Aspartate Aminotrans (AST/SGOT 134 U/L (12-37); Bilirubin, Total 0.4 mg/dL (0.1-1.0); Blood Urea Nitrogen 44 mg/dL (8-24); Bun/Creatinine Ratio 39.6 (12.0-20.0); CO2, Blood 29 mmol/L (21-32); Calcium, Blood 7.2 mg/dL (8.5-10.1); Chloride, Blood 126 mmol/L (98-108); Creatinine, Blood 1.11 mg/dL (0.60-1.20); Globulin, Blood 4.5 g/dL (2.2-4.0); Glomerular Filtration Rate >60 (60-); Glucose, Blood 228 mg/dL (70-99); Sodium, Blood 157 mmol/L (136-145); Total Protein, Blood 5.7 g/dL (6.4-8.2)
--- NOTE | 2021-07-08 08:52 | NUR ---
ASSUMED CARE OF PATIENT AT 0700: THIS RN AND NIGHT RN ASSESSED PATIENT, PATIENT MINIMAL STERNAL RUB RESPONSE, SOME DESATURATION INTO 80S OTHERWISE VSS, 0.4MG NARCAN GIVEN NO RESPONSE, MD VEGA CONTACTED STOP D5W FLUIDS AND STAT CBC/CMP, LABS DRAWN, FURTHER DESATURATION/APNEA, ST 100 DOWN TO LOW 40S JAMEE, RESPIRATORTY CODE ANNOUNCED, 20 ETOMIDATE/70 SUCCINYLCHOLINE GIVEN, ER MD INTUBATED 7.5 ET TUB 25CM AT THE [facility], CONFIRMED PLACEMENT W/ XRAY CONFIRMATION, PROPOFOL INITIATED AT 10, VSS RETURN TO WNL, NA 157, MD PRUETT CONTINUE NO FLUIDS, NEXT NA LAB AT 1100, FAMILY UPDATED BY MD, WILL CONTINUE TO MONITOR.
--- NOTE | 2021-07-08 10:21 | NUR ---
UNABLE TO TITRATE TO EFFECT LEVO AT 0940, BP CONTINUES TO DROP, LEVO UP TO 28, HR DROPPED TO 60S, PULSES WEAK +1 RADIAL/FEMORAL, HR FURTHER DROPPED TO 40S, LOSS OF PALPABLE PULSES, SKIN MOTTLING EVIDENCE LEGS/ARMS, U/T DOPPLER FEMORAL PULSE, CPR INITIATED 0945, 1 MG EPI/CALCIUM/2 AMP BICARB/1L NS BOLUS, ROSC AT 0950 W/ ST 160S AND BP 105/55, A LINE PLACED L RADIAL, FLUID BOLUS STOPPED, MAINTAINING BP WITH LEVO ONLY CURRENTLY, FAMILY AT BEDSIDE AND UPDATED ON CARE, WILL CONTINUE TO MONITOR.
[2021-07-08 10:22] LABS: PCO2 Arterial 45.5 mmHg (35-45); PO2 Arterial 73.8 mmHg (80-100); pH Blood Arterial 7.33 (7.35-7.45)
--- NOTE | 2021-07-08 11:05 | NUR ---
Pastoral care visitation conducted. Family were at the bedside providing basic presence. Pt's son steps out and gives an overview as to the familial dynamics and proceeds to divulge his current thoughts and emotions related to the situation. Empathic listening and conversational guidance extended to redirect towards consolation. Son was receptive and appreciative. Pastoral support will remain available prospectively.
[2021-07-08 14:43] LABS: International Normalized Ratio 1.17; Prothrombin Time Results 12.2 Sec (9.7-11.5)
[2021-07-08 14:45] LABS: PCO2 Arterial 32.9 mmHg (35-45); PO2 Arterial 121 mmHg (80-100); pH Blood Arterial 7.52 (7.35-7.45)
[2021-07-08 14:48] LABS: Anion Gap 5 mmol/L (6-16); Blood Urea Nitrogen 46 mg/dL (8-24); Bun/Creatinine Ratio 37.1 (12.0-20.0); CO2, Blood 27 mmol/L (21-32); Calcium, Blood 7.2 mg/dL (8.5-10.1); Chloride, Blood 126 mmol/L (98-108); Creatinine, Blood 1.24 mg/dL (0.60-1.20); Glomerular Filtration Rate >60 (60-); Glucose, Blood 216 mg/dL (70-99); Potassium, Blood 3.3 mmol/L (3.5-5.5); Sodium, Blood 158 mmol/L (136-145)
--- NOTE | 2021-07-08 16:30 | NUR ---
IN PERSON DISCUSSION WITH FAMILY REGARDING MAKKING THE SISTER LUAN THE PRIMARY DECISION MAKER FOR JOHNNIE HOLLAND. WITH MOTHER FREDDY, SON TIFFANIE, SON SASCHA AND DAUTHMATEO CHRISTIAN PRESENT, EACH INDIVIDUAL CONFIRMED THEY WOULD LIKE LUAN TO BE THE PRIMARY CONTACT AND DECISION MAKER FOR JOHNNIE HOLLAND. GABRIELE CRUZ RN CAN ATTEST TO THIS DISCUSSION A SECOND WITNESS.
[2021-07-08 19:56] LABS: Bun/Creatinine Ratio 35.3 (12.0-20.0); Creatinine, Blood 1.36 mg/dL (0.60-1.20); Potassium, Blood 3.4 mmol/L (3.5-5.5)
--- NOTE | 2021-07-08 21:56 | NUR ---
ASSUMED CARE AT 1900 PT LAYING IN BED INTUBATED WITH VENT SETTINGS AC/VC 16/450/5/40%; SMALL AMOUNT OF THICK CLEAR SECREATIONS FROM ETT. PT MINIMALLY REACTIVE TO NOXIOUS STIMULI; WHILE REPOSITIONED, PT OPENED EYES BUT DID NOT BLINK, TRACK, OR FOLLOW DIRECTION, NO GAG, MINIMAL COUGH. MAX TEMP 100.0. HR 100-110. ART LINE IN PLACE TO LT WRIST; SBP 90-100; GOAL MAP >65; LEVOPHED TITRATED TO 6MCG/MIN; SEE FLOW SHEET FOR TITRATION. NG TO LIS. RECTAL TUBE PLACED FOR RECTAL LACTULOSE; CLAMPED WHILE GIVING MEDICATION. BRAVO IN PLACE AND DRAINING TO GRAVITY. INSULIN INFUSING AT 1UNIT/HR. KPHOS ALMOST FINISHED INFUSING. SEE SHIFT ASSESSMENT FOR FULL ASSESSMENT
--- NOTE | 2021-07-08 22:02 | NUR ---
UPDATE DR PRUETT CALLED RN REGARDING SODIUM LEVEL, NEW ORDERS PROVIDED FOR NS 75ML/HR, CONT TO HOLD D5W. NEXT NA AND K LAB DRAW AT 2200. NOTIFIED DR ADAME REGARDING TROPONIN 261, NO NEW ORDERS PROVIDED.
[2021-07-08 22:24] LABS: Potassium, Blood 3.3 mmol/L (3.5-5.5)
--- NOTE | 2021-07-08 22:40 | NUR ---
UPDATE DR PRUETT NOTIFIED OF 2200 NA AND K LABS. NEW ORDERS PROVIDED FOR 20MEQ OF KCL, INCREASE NS RATE FROM 75 TO 150, FOLLOWED BY NA LAB DRAW AT 0100 AND TO BE CALLED BY 0200 WITH RESULTS.
[2021-07-09 01:30] LABS: Bun/Creatinine Ratio 37.8 (12.0-20.0); Creatinine, Blood 1.35 mg/dL (0.60-1.20); Potassium, Blood 3.7 mmol/L (3.5-5.5)
--- NOTE | 2021-07-09 01:43 | NUR ---
UPDATE NOTIFIED DR PRUETT REGARDING NA LAB 161. NEW ORDERS PROVIDED TO D/C NS, START D5W AT 100ML/HR, AND REDRAW NA LAB AT 0300 FOLLOWED BY CALLING HIM WITH RESULTS BY 0400.
[2021-07-09 03:38] LABS: Albumin/Globulin Ratio 0.2 (0.8-1.8); Bilirubin, Total 0.4 mg/dL (0.1-1.0); Bun/Creatinine Ratio 37.9 (12.0-20.0); Creatinine, Blood 1.32 mg/dL (0.60-1.20); Globulin, Blood 4.2 g/dL (2.2-4.0); Phosphorus, Blood 5.7 mg/dL (2.5-4.9); Potassium, Blood 3.5 mmol/L (3.5-5.5); Total Protein, Blood 5.2 g/dL (6.4-8.2)
--- NOTE | 2021-07-09 03:44 | NUR ---
UPDATE CALLED DR PRUETT REGARDING LABS DRAWN AT 0300. NEW ORDERS PROVIDED TO INCREASE D5W RATE FROM 100ML/HR TO 200ML/HR, AND TO DRAW SODIUM LAB AT 0500 WITH RESULTS CALLED TO HIM BY 0600.
[2021-07-09 05:12] LABS: Hematocrit 28.2 % (37.0-53.0); Hemoglobin 9.1 g/dL (13.5-17.5); Mean Corpuscular HGB 29.3 pg (26.0-34.0); Mean Corpuscular HGB Conc 32.3 g/dL (31.5-36.5); Mean Corpuscular Volume 91 fL (80-100); Mean Platelet Volume 10.8 fL (9.1-12.4); NRBC ABSOLUTE 0.05 K/mm3 (0.00-0.02); NRBC Auto 0.6 /100 WBC (0.0-0.2); Platelet Count 144 K/mm3 (150-400); RDW Coefficient Variation 14.3 % (11.7-14.2); RDW Standard Deviation 47.3 fL (35.1-46.3); Red Blood Cell Count 3.11 M/mm3 (4.30-5.90); White Blood Cell Count 8.81 K/mm3 (4.00-11.30)
--- NOTE | 2021-07-09 05:58 | NUR ---
END OF SHIFT SUMMARY PT CONT TO BE INTUBATED WITH VENT SETTINGS 16/450/5/40%; SMALL AMOUNT OF THICK WHITE SECREATIONS FROM ETT; RR MID 20'S UNTIL 0500, NOW RR 16 WITH VENT. PT ONLY OCCATIONALLY RESPONSIVE TO PAINFUL STIMULI BY GRIMICING DURING REPOSITIONING AND ORAL CARE; NO GAG, WEAK COUGH; PERRLA; NO SEDATION INFUSING. HR 100-110 UNTIL 0500; NOW HR 80'S. SBP 90-100; MAP >65; LEVOPHED TITRATED TO 7MCG/MIN; ART LINE TO LT WRIST NOTED, DRESSING INTACT. NG TO LIS, NO OUTPUT THIS SHIFT. RECTAL TUBE IN PLACE, NO BM. BRAVO IN PLACE WITH 1550ML OUTPUT. INSULIN INFUSING AT 3UNITS/HR. D5W INFUSING AT 200ML/HR. WILL REPORT TO AM RN WHEN AVAILABLE. CALLED DR PRUETT REGARDING 0500 NA LAB RESULTS. NEW ORDERS PROVIDED FOR NEXT NA LAB DRAW TO BE AT 0900 AND RESULTS CALLED TO HIM BY 1000.
[2021-07-09 06:06] LABS: BAND PERCENT MAN 20 % (0-8); BASOPHILS PERCENT MAN 0 % (0-2); EOSINOPHILS PERCENT MAN 0 % (0-6); LYMPHOCYTES ABSOLUTE MAN 0.88 K/mm3 (0.84-5.20); LYMPHOCYTES PERCENT MAN 10 % (21-46); MONOCYTES ABSOLUTE MAN 0.61 K/mm3 (0.16-1.47); MONOCYTES PERCENT MAN 7 % (4-13); NEUTROPHILS ABSOLUTE MAN 7.31 K/mm3 (1.96-9.15); SEG NEUTROPHILS PERCENT MAN 63 % (41-73); TOTAL CELLS COUNTED 100
[2021-07-09 07:40] LABS: Calcium, Blood 6.8 mg/dL (8.5-10.1); Creatinine, Blood 1.37 mg/dL (0.60-1.20); Potassium, Blood 3.5 mmol/L (3.5-5.5)
[2021-07-09 08:54] LABS: Albumin, Blood 1.1 g/dL (3.4-5.0); Albumin/Globulin Ratio 0.3 (0.8-1.8); Bilirubin, Total 0.3 mg/dL (0.1-1.0); Bun/Creatinine Ratio 36.6 (12.0-20.0); Calcium, Blood 6.7 mg/dL (8.5-10.1); Creatinine, Blood 1.31 mg/dL (0.60-1.20); Globulin, Blood 4.1 g/dL (2.2-4.0); Potassium, Blood 3.5 mmol/L (3.5-5.5); Total Protein, Blood 5.2 g/dL (6.4-8.2)
[2021-07-09 11:39] LABS: PCO2 Arterial 41.8 mmHg (35-45); PO2 Arterial 108 mmHg (80-100); pH Blood Arterial 7.41 (7.35-7.45)
[2021-07-09 12:37] LABS: Bun/Creatinine Ratio 34.6 (12.0-20.0); Calcium, Blood 6.9 mg/dL (8.5-10.1); Creatinine, Blood 1.36 mg/dL (0.60-1.20); Potassium, Blood 3.2 mmol/L (3.5-5.5)
--- NOTE | 2021-07-09 18:50 | NUR ---
UNRESPONSIVE TO PAIN, GCS 3, PUPILS SLUGGISH EQUAL, AFEBRILE, BC GRAM POSITIVE COCCI W/ CLUSTERS AWARE, LUNGS CLEAR/DIM SOME COARSNESS RESOLVED UPPER LEE, 30%/5 PEEP VENT ACVC, NSR/ST 80-120S, LEVO TITRATED TO EFFECT MAP >65, PATIENT TOLERATES HIGHER MAP >70 BETTER, MAP NEAR 65 PATIENT ACUTE JAMEE/DROP IN BP/HYPOXIA WITH RETURN IN VSS BASELINE WHEN LEVO TITRATED UP X2 EPISODES, LEVO CURRENTLY 6 W/ MAP~75, +2 PULSES, NO BM, LACTULOSE ENEMA 300ML GIVEN, 300ML OUTPUT NET 0 NO EFFECT, HYPOACTIVE BOWELS, BRAVO ADEQUATE UOP CLEAR/YELLOW 100-150ML/HR, MD PRUETT CONSULTED FOR SODIUM LEVELS, RECENT 156, NEXT NA DRAW 2100, REPLACED POTASSIUM 20MEQ, EEG SCHEDULED FOR 7AM, UPDATES GIVEN TO LUAN SISTER, REPORTED TO NIGHT RN UPDATES AND RECOMENDATIONS.
[2021-07-09 21:30] LABS: Anion Gap 7 mmol/L (6-16); Blood Urea Nitrogen 41 mg/dL (8-24); CO2, Blood 27 mmol/L (21-32); Calcium, Blood 6.9 mg/dL (8.5-10.1); Chloride, Blood 120 mmol/L (98-108); Creatinine, Blood 1.28 mg/dL (0.60-1.20); Glomerular Filtration Rate >60 (60-); Glucose, Blood 191 mg/dL (70-99); Potassium, Blood 3.3 mmol/L (3.5-5.5); Sodium, Blood 154 mmol/L (136-145)
--- NOTE | 2021-07-09 23:14 | NUR ---
ASSUMED CARE AT 1900 PT LAYING IN BED INTUBATED WITH VENT SETTINGS AC/VC 16/450/5/40%; SCANT AMOUNT OF THICK YELLOW SECREATIONS. PT MINIMALLY RESPONSIVE TO PAINFUL STIMULI WITH GRIMICING TO ORAL CARE AND REPOSITIONING; PUPILS SLUGGISH; NO GAG OR COUGH. HR 80-110. SEVERAL TIMES WILL JAMEE DOWN TO 40'S BUT RECOVERS; WHEN THIS OCCURS SPO2 DECREASES TO 84% AND MAP DROPS TO 60-65, EPI STARTED AT 2 AND LEVOPHED TITRATED DOWN TO 4MCG/MIN. SINCE STARTING EPI, HR HAS NOT DROPED DOWN TO 40'S. NG CLAMPED; RECTAL TUBE IN PLACE. BRAVO IN PLACE AND DRAINING TO GRAVITY. D5W INFUSING AT 250ML/HR. INSULIN INFUSING AT 1UNIT/HR. SEE SHIFT ASSESSMENT FOR FULL ASSESSMENT. CALLED DR PRUETT REGARDING 2200 LAB RESULTS. NEW ORDERS PROVIDED FOR SODIUM LAB DRAW AT 0000 WITH RESULTS CALLED TO HIM BY 0100; AND 20MEQ OF KCL. LUAN (SISTER) CALLED 2330 FOR AN UPDATE. PNTB CALLED 2240 FOR AN UPDATE.
--- NOTE | 2021-07-10 01:19 | NUR ---
UPDATE CALLED DR PRUETT REGARDING 0000 LAB DRAW AT 0040. NEW ORDERS PROVIDED TO DECREASE D5W RATE FROM 250 TO 100, AND TO DRAW ALL MORNING LABS AT 0400 FOLLOWED BY CALLING HIM BY 0500 WITH RESULTS.
[2021-07-10 04:12] LABS: Hematocrit 25.2 % (37.0-53.0); Hemoglobin 7.9 g/dL (13.5-17.5)
[2021-07-10 04:39] LABS: Alanine Aminotransfer (ALT/SGP 19 U/L (12-78); Albumin/Globulin Ratio 0.2 (0.8-1.8); Alk Phos 555 U/L (50-136); Anion Gap 7 mmol/L (6-16); Aspartate Aminotrans (AST/SGOT 33 U/L (12-37); Bilirubin, Total 0.3 mg/dL (0.1-1.0); Blood Urea Nitrogen 38 mg/dL (8-24); Bun/Creatinine Ratio 33.3 (12.0-20.0); CO2, Blood 27 mmol/L (21-32); Calcium, Blood 6.8 mg/dL (8.5-10.1); Chloride, Blood 118 mmol/L (98-108); Creatinine, Blood 1.14 mg/dL (0.60-1.20); Globulin, Blood 4.2 g/dL (2.2-4.0); Glomerular Filtration Rate >60 (60-); Glucose, Blood 309 mg/dL (70-99); Phosphorus, Blood 4.3 mg/dL (2.5-4.9); Potassium, Blood 3.1 mmol/L (3.5-5.5); Sodium, Blood 152 mmol/L (136-145); Total Protein, Blood 5.2 g/dL (6.4-8.2)
--- NOTE | 2021-07-10 04:46 | NUR ---
UPDATE CALLED DR PRUETT REGARDING AM LABS. NEW ORDERS PROVIDED TO INCREASE D5W FROM 100 TO 125, 30MEQ OF KCL, AND SODIUM LAB DRAW FOR 0700 WITH RESULTS TO BE CALLED TO HIM BY 0800.
--- NOTE | 2021-07-10 06:27 | NUR ---
END OF SHIFT SUMMARY NO ACUTE EVENTS OVERNIGHT. PT CONT TO BE INTUBATED WITH VENT SETTINGS AC/VC 16/450/5/45%; SMALL TO SCANT THICK YELLOW SECREATIONS FROM ETT. PT REACTIVE TO NOXIOUS STIMULI WITH GRIMICING. NO GAG OR COUGH. HR 80-110.S SBP 90-120'S; MAP >65; LEVOPHED INFUSING AT 3MCG/MIN; EPI INFUSING AT 2MCG/MIN; SINCE STARTING EPI GTT, NO JAMEE EVENTS; ART LINE TO LT WRIST NOTED. NG ACCIDENTALY PULLED, OG PLACED FOLLOWED BY CHEST XRAY. RECTAL TUBE IN PLACE WITH NO BM OUTPUT AFTER LACTULOSE. BRAVO IN PLACE AND DRAINING TO GRAVITY. D5W INFUISNG AT 125ML/HR. INSULIN INFUSING AT 6UNITS/HR. WILL REPORT TO AM RN WHEN AVAILABLE.
--- NOTE | 2021-07-10 07:34 | NUR ---
ASSUMED CARE OF PATIENT 0700: MINIMAL PAIN RESPONSE STERNAL RUB, PUPILS 3MM MORE BRISK THAN PREVIOUSLY, GCS 4, LUNGS CLEAR/DIM, ON 45% PEEP 5, SCANT SECRETIONS, SR TO ST 80-100S, +2 PULSES, BP MAINTAINED WITH LEVO 3, TITRATED UP TO 3 OF EPI FROM2 TO MAINTAIN HR PATIENT WAS HAVING SOME BRIEF EPISODES OF BRADYCARDIA 40S/HYPOXIA 70S/HYPOTENSION 70S SBP, NO BM YET, WILL BE GIVING LACTULOSE, UOP ADEQUATE BRAVO CLEAR/YELLOW, REPLACING POTASSIUM, CBGS LOW 200S WITH EXTRA DEXTROSE INFUSIONS INSULIN AT 7, EEG REP PRESENT WILL BE PERFORMING ANALYSIS, WILL CONTINUE TO MONITOR.
[2021-07-10 10:29] LABS: Anion Gap 6 mmol/L (6-16); Blood Urea Nitrogen 33 mg/dL (8-24); Bun/Creatinine Ratio 30.8 (12.0-20.0); CO2, Blood 26 mmol/L (21-32); Calcium, Blood 6.7 mg/dL (8.5-10.1); Chloride, Blood 118 mmol/L (98-108); Creatinine, Blood 1.07 mg/dL (0.60-1.20); Glomerular Filtration Rate >60 (60-); Glucose, Blood 245 mg/dL (70-99); Potassium, Blood 3.4 mmol/L (3.5-5.5); Sodium, Blood 150 mmol/L (136-145)
[2021-07-10 14:26] LABS: BASOPHILS ABSOLUTE AUTO 0.03 K/mm3 (0.00-0.23); BASOPHILS PERCENT AUTO 0 % (0-2); Hematocrit 23.5 % (37.0-53.0); Hemoglobin 7.6 g/dL (13.5-17.5); LYMPHOCYTES ABSOLUTE AUTO 1.04 K/mm3 (0.84-5.20); LYMPHOCYTES PERCENT AUTO 8 % (21-46); MONOCYTES ABSOLUTE AUTO 0.45 K/mm3 (0.16-1.47); MONOCYTES PERCENT AUTO 3 % (4-13); Mean Corpuscular HGB 29.5 pg (26.0-34.0); Mean Corpuscular HGB Conc 32.3 g/dL (31.5-36.5); Mean Corpuscular Volume 91 fL (80-100); Mean Platelet Volume 10.9 fL (9.1-12.4); NRBC ABSOLUTE 0.05 K/mm3 (0.00-0.02); NRBC Auto 0.4 /100 WBC (0.0-0.2); Platelet Count 199 K/mm3 (150-400); RDW Coefficient Variation 13.7 % (11.7-14.2); RDW Standard Deviation 45.6 fL (35.1-46.3); Red Blood Cell Count 2.58 M/mm3 (4.30-5.90); White Blood Cell Count 13.46 K/mm3 (4.00-11.30)
[2021-07-10 14:33] LABS: EOSINOPHILS ABSOLUTE AUTO 0.02 K/mm3 (0.00-0.68); EOSINOPHILS PERCENT AUTO 0 % (0-6); IMMATURE GRAN ABSOLUTE AUTO 0.08 K/mm3 (0.00-0.10); IMMATURE GRAN PERCENT AUTO 1 % (0-1); NEUTROPHILS ABSOLUTE AUTO 11.84 K/mm3 (1.96-9.15); NEUTROPHILS PERCENT AUTO 88 % (41-73)
[2021-07-10 17:13] LABS: Alanine Aminotransfer (ALT/SGP 13 U/L (12-78); Albumin/Globulin Ratio 0.2 (0.8-1.8); Alk Phos 472 U/L (50-136); Anion Gap 6 mmol/L (6-16); Aspartate Aminotrans (AST/SGOT 23 U/L (12-37); Bilirubin, Total 0.3 mg/dL (0.1-1.0); Blood Urea Nitrogen 30 mg/dL (8-24); Bun/Creatinine Ratio 30.5 (12.0-20.0); CO2, Blood 26 mmol/L (21-32); Chloride, Blood 117 mmol/L (98-108); Creatinine, Blood 0.99 mg/dL (0.60-1.20); Globulin, Blood 4.2 g/dL (2.2-4.0); Glomerular Filtration Rate >60 (60-); Glucose, Blood 179 mg/dL (70-99); Potassium, Blood 3.5 mmol/L (3.5-5.5); Sodium, Blood 149 mmol/L (136-145); Total Protein, Blood 5.2 g/dL (6.4-8.2)
--- NOTE | 2021-07-10 19:00 | NUR ---
ASSUMPTION OF CARE PT REMAINS INTUBATED WITH VENT SETTINGS AC/VC 16/450/5/40%. PT RECEIVING INSULIN 3UNITS/HR, LEVOPHED 3MCG/MIN, AND D5 175ML/HR. PT OPENS EYES SPONTANEOUSLY AND TRACKS MOVEMENTS. NO PURPOSEFUL EXTREMITIY MOVEMENT. CBGS Q1HR. MONITORING I&O Q1HR. TUBE FEEDING INFUSING AT 20ML/HR. RESIDUALS 90ML. ABDOMEN SOFT TO PALPATION. TEMP BRAVO CONTINUES TO DRAIN TO GRAVITY. LACTULOSE ENEMA ADMINISTERED VIA RECTAL TUBE, FULL AMOUNT RETURNED. SEE SHIFT ASSESSMENT.
--- NOTE | 2021-07-10 19:02 | NUR ---
UNRESPONSIVE, GCS 4, SOME PAIN RESPONSE STERNAL RUB, EEG DONE AWAITING RESULTS, PUPILS MIXED SLUGGISH REACTIVE 3MM, NSR/ST 80-120S, +2 PULSES, PRESSORS TITRATED TO EFFECT MAP >65, LUNGS MORE COARSE THIS SHIFT REQUIRING FREQUENT SUCTIONING, NO BM YET, LACTULOSE ENEMA GIVEN FOR THIRD TIME NET 0 OUTPUT NO EFFECT, HYPOACTIVE BOWELS, UOP INCREASED CLEAR/YELLOW AROUND 200ML/HR, NA CONTINUES TO COME DOWN RECENT 149, D5W UP TO 175 PER MD PRUETT, RECHECK SODIUM 2200, FAMILY UPDATED ON CARE, WILL REPORT TO NIGHT RN.
--- NOTE | 2021-07-10 22:55 | NUR ---
CALL TO DR PRUETT NOTIFIED OF SODIUM THAT WAS DRAWN AT 2200. VERBAL ORDER RECEIVED TO DECREASED D5 FROM 175ML/HR TO 150ML/HR. DR PRUETT WOULD LIKE AM LABS DRAWN AT 0400 AND TO BE NOTIFIED OF RESULTS.
--- NOTE | 2021-07-11 00:44 | NUR ---
UPDATE PT HAS HAD SEVERAL EPISODES OF BRADYCARDIA WITH HR 40S-50S THAT RESOLVE WITHIN A FEW SECONDS AND HR RETURNS TO 80S-110S. PT OPENS EYES TO VERBAL STIMULI AND CONTINUES TO TRACK MOVEMENTS. PT DOES NOT MAKE PURPOSEFUL MOVEMENTS WITH EXTREMITIES. SPOKE WITH SISTER LUAN ON TELEPHONE AND UPDATED ON PT'S CONDITION. PLAN FOR LUAN TO COME IN 07/11 AT APPROX 1400 TO HAVE DISCUSSION WITH CARE TEAM.
--- NOTE | 2021-07-11 02:50 | NUR ---
UPDATE AT APPROX 0250, PT BEGAN TO JAMEE DOWN WITH HR IN 30S, PT BECAME HYPOTENSIVE WITH ART LINE READING 57/20, SPO2 DECREASED TO 70S. PT HAS HAD MULTIPLE EPISODES OF BRADYCARDIA WITH HR IN 40S-50S THAT QUICKLY RESOLVE WITHOUT EFFECTING BP OR OXYGENATION. MULTIPLE STAFF MEMBERS PRESENT, RT NOTIFIED. LEVOPHED TITRATED UP TO 20MCG/MIN, EPINEPHRINE RESTARTED AT 2MCG/MIN. RT AT BEDSIDE AND BEGIN BAGGING PT. AM LABS DRAWN AT THIS TIME. CODE CART PLACED OUTSIDE OF ROOM AND PADS PLACED ON PT FOR PRECAUTION. DR DOVER NOTIFIED, ORDER RECEIVED FOR 500ML BOLUS NS. MONITOR SHOWS FREQUENT ECTOPY, BP AND HR INCREASING, LEVOPHED AND EPI TITRATED. EPI IS NOW ON STANDBY, LEVOPHED AT 5MCG/MIN. PT OPENS EYES TO VERBAL STIMULI AND CONTINUES TO TRACK MOVEMENTS.
[2021-07-11 03:01] LABS: PCO2 Arterial 54.8 mmHg (35-45); pH Blood Arterial 7.35 (7.35-7.45)
[2021-07-11 03:02] LABS: PO2 Arterial 38.5 mmHg (80-100)
[2021-07-11 03:10] LABS: Hematocrit 23.8 % (37.0-53.0); Hemoglobin 7.4 g/dL (13.5-17.5); Mean Corpuscular HGB 28.7 pg (26.0-34.0); Mean Corpuscular HGB Conc 31.1 g/dL (31.5-36.5); Mean Corpuscular Volume 92 fL (80-100); Mean Platelet Volume 11.2 fL (9.1-12.4); NRBC ABSOLUTE 0.08 K/mm3 (0.00-0.02); NRBC Auto 0.7 /100 WBC (0.0-0.2); Platelet Count 188 K/mm3 (150-400); RDW Coefficient Variation 13.5 % (11.7-14.2); RDW Standard Deviation 46.2 fL (35.1-46.3); Red Blood Cell Count 2.58 M/mm3 (4.30-5.90); White Blood Cell Count 11.78 K/mm3 (4.00-11.30)
[2021-07-11 03:28] LABS: BAND PERCENT MAN 16 % (0-8); BASOPHILS PERCENT MAN 0 % (0-2); EOSINOPHILS ABSOLUTE MAN 0.11 K/mm3 (0.00-0.68); EOSINOPHILS PERCENT MAN 1 % (0-6); LYMPHOCYTES ABSOLUTE MAN 0.82 K/mm3 (0.84-5.20); LYMPHOCYTES PERCENT MAN 7 % (21-46); MONOCYTES ABSOLUTE MAN 0.58 K/mm3 (0.16-1.47); MONOCYTES PERCENT MAN 5 % (4-13); NEUTROPHILS ABSOLUTE MAN 10.24 K/mm3 (1.96-9.15); SEG NEUTROPHILS PERCENT MAN 71 % (41-73); TOTAL CELLS COUNTED 100
[2021-07-11 03:30] LABS: Anion Gap 2 mmol/L (6-16); Blood Urea Nitrogen 29 mg/dL (8-24); Bun/Creatinine Ratio 29.5 (12.0-20.0); CO2, Blood 29 mmol/L (21-32); Calcium, Blood 6.9 mg/dL (8.5-10.1); Chloride, Blood 116 mmol/L (98-108); Creatinine, Blood 0.98 mg/dL (0.60-1.20); Glomerular Filtration Rate >60 (60-); Glucose, Blood 157 mg/dL (70-99); Phosphorus, Blood 3.2 mg/dL (2.5-4.9); Potassium, Blood 4.1 mmol/L (3.5-5.5); Sodium, Blood 147 mmol/L (136-145)
--- NOTE | 2021-07-11 06:05 | NUR ---
SHIFT SUMMARY PT REMAINS INTUBATED WITH VENT SETTINGS AC/VC 16/450/10/75%. PT RECEIVING LEVOPHED 4MCG/MIN, INSULIN GTT 2UNITS/HR, AND D5 75ML/HR. PT HAS HAD A COUPLE MORE EPISODES OF BRADYCARDIA, HYPOTENSION AND DECREASED SPO2 THAT QUICKLY RESOLVE. PT CONTINUES TO WAKE TO VERBAL STIMULI. TUBE FEEDING AT GOAL RATE WITH SMALL RESIDUALS. PER DR PRUETT, 100ML FREE WATER FLUSHES VIA OGT Q6HRS. BRAVO PATENT DRAINING CLEAR YELLOW URINE. RECTAL TUBE REMAINS IN PLACE WITH NO OUTPUT. CONTINUE WTIH Q1 GLUCOSE CHECKS AND Q1 I/O. WILL REPORT TO ONCOMING RN.
--- NOTE | 2021-07-11 07:30 | NUR ---
Received report from Brenda OLIVIA. Patient is intubated and no sedation with 7.5 ET and 25 at teeth with vent settings of 16/450/50/10 and sats 97%. He opens eyes to verbal stimuli and tracks, no distal extremity movement. He has arterial line in left wrist. He has PICC line to JOSE JUAN infusing D5 at 75ml/hr, Levophed at 6 mcg/min, Insulin at 2 units/hr, Epi and standby. He has OG in place and infusing Pivot 1.5 at 20 ml/hr and chnage to 100 ml water flush Q6. He has 16Fr temp torres draining to gravity, and rectal to draing to gravity and minimal out put.
--- NOTE | 2021-07-11 09:22 | NUR ---
Insulin has been changed to 1 and D5 has been dropped to 50 ml/hr, CBG 165. Dr Fisher seen patient and placed on Spon. Mode PS 10/50%/8 with sats 97%.
--- NOTE | 2021-07-11 09:36 | NUR ---
Insulin gtt off and see next CBG. Remains on Spon. Mide PS 10/50%/8 and sats 96%.
--- NOTE | 2021-07-11 11:58 | NUR ---
Patient has not mony down since end of Noc shift. Vent settings are Spon. Mode PS 10/40%/8 and sats 95%. Patient SR 70's. He has been having 150-250 urine output clear yellow and no rectal output. Insulin back on at 1 unit/hr and D5 at 25 ml/hr, prior CBG at 229.
--- NOTE | 2021-07-11 13:30 | NUR ---
Patient remains on spontaneous mode PS / and sats >90%. Insulin gtt at 2 units/hr and CBG 200's and coming down. Levophed at 6 and just decreased to 5 and systolics 100's and MAPS >65, SR 70-80's. D5 at 25ml/hr. Patient continues to open eyes to verbal stimuli and slightly track. Family coming in at 1400.
--- NOTE | 2021-07-11 14:59 | NUR ---
Supportive visit this afternoon. Pt's daughter Bhavana, Pt's sister Sheryl, and Courier Delivery Driver Fei at bedside upon this RNs arrival. Answered questions and offered therapeutic listening. Family reports still processing informatin and is likely leaning towards DNR status. Family expresses appreciation and report no other concerns at this time. Spoke with Primary RN Justin and discussed case. Palliative Care will remain available.
--- NOTE | 2021-07-11 15:03 | NUR ---
Pt. is intubated, and mostly non-resposive with only occassional eye movement. Pts. sister Sheryl, and daughter Bhavana are present. Develop rapport with the family and begin a Pt. life review. Sister is unsettled about making a DNR decision without getting solid feedback from primary family members. Listen empathetically. Palliative Care arrives to continue the discussion and answer questions. Pts. daughter and sister display evidence of understanding, but continue to seek family input from phone calls. Palliative Care and I excuse ourselves, but will monitor with floor staff during the course of the day.
--- NOTE | 2021-07-11 16:00 | NUR ---
Place patient back to AC/VC 16/450/35/8 and sats >90%. Insulin gtt at 2 units/hr and CBG low 200's. D5 remains at 25ml/hr Levophed at 6 mcg/min again to maintain MAP >65. He has been swithching bundle and rates in the 50 prior to switching back to AC on vent, currently 70's. Family at bedside and are going to make DNR.
--- NOTE | 2021-07-11 17:09 | NUR ---
Spiritual Care Conducted. Pt. continues to be treated in ICU. Pts. sister is under spritual distress over ethical and emotional concerns regarding making a DNR decision for the pt. Provided a calming presenc, offered emotional support, and continued to develop a rapport with the family. Explored issues of taisha and belief. The focus of pastoral care is primarily on the family. Family displayed evidence of appreciation, and comprehension. When the medical staff stepped out brought family to the bedside and prayed for the pt. Another son (Ruslan) came in, and after he spent time with the pt., provided end of life decision making support. Brought in attending nurse to further answer questions for the son. Family displayed evidence of comprehension and a unified position regarding the pts. DNR status. Family verbally requested that I give them some time alone. Informed them of the process to communicate with the nursing staff their intentions before they leave pt. this evening.
--- NOTE | 2021-07-11 18:10 | NUR ---
Family has gone and Sheryl sister has made him DNR after communicating with all children. Sheryl has also showed me texts from all of his children derfering decision to her. Vent settings 16/450/35/8 and sats >90%. Levophed at 6 mcg/min, Insulin at 2 units/hr and D% at 25 ml/hr. Earlier increased Pivot 1.5 to 30 ml/hr and 100 water flushes q6.No output for rectal tube and torres had 1700 ml's.
--- NOTE | 2021-07-11 19:00 | NUR ---
ASSUMPTION OF CARE PT REMAINS INTUBATED WITH VENT SETTINGS AC/VC 16/450/8/35%. PT RECEIVING LEVOPHED 6MCG/MIN, INSULIN 2UNITS/MIN, AND D5 20ML/HR. PT WAKENS TO VERBAL STIMULI, TRACKS MOVEMENTS. TUBE FEEDING INFUSING WITH RESIDALS 40ML. RECTAL TUBE IN PLACE WITH NO OUTPUT. BRAVO DRAINING CLEAR/YELLOW URINE. SEE SHIFT ASSESSMENT.
[2021-07-12 04:03] LABS: Hematocrit 22.3 % (37.0-53.0); Hemoglobin 7.1 g/dL (13.5-17.5)
[2021-07-12 04:04] LABS: Anion Gap 4 mmol/L (6-16); Blood Urea Nitrogen 39 mg/dL (8-24); Bun/Creatinine Ratio 37.9 (12.0-20.0); CO2, Blood 29 mmol/L (21-32); Calcium, Blood 7.5 mg/dL (8.5-10.1); Chloride, Blood 116 mmol/L (98-108); Creatinine, Blood 1.03 mg/dL (0.60-1.20); Glomerular Filtration Rate >60 (60-); Glucose, Blood 246 mg/dL (70-99); Phosphorus, Blood 3.8 mg/dL (2.5-4.9); Potassium, Blood 3.8 mmol/L (3.5-5.5); Sodium, Blood 149 mmol/L (136-145)
--- NOTE | 2021-07-12 06:21 | NUR ---
SHIFT SUMMARY PT REMAINS INTUBATED AND ON SPONTANEOUS SINCE 329 WITH PS 10, PEEP 8, AND FIO2 40%. PT RECEIVING LEVOPHED 5MCG/MIN, INSULIN 0.5UNITS/HR, AND D5 25ML/HR. PT HAS BECOME MORE ALERT THROUGHOUT THE NIGHT. PT NOW MAKES SMALL HEAD MOVEMENTS TO LOOK AROUND ROOM AND AT MONITORS WHEN THEY ALARM. PT DOES NOT ANSWER QUESTIONS OR MOVE EXTREMITIES. TUBE FEEDING INCREASED TO GOAL RATE WITH MINIMAL RESIDUALS. BRAVO PATENT DRAINING URINE. WILL REPORT TO ONCOMING RN.
--- NOTE | 2021-07-12 07:53 | NUR ---
Received report from Jojo OLIVIA. Patient is intubated and not sedated. He has 7.5 ET and is 25 cm at teeth with vent settings of Spon.mode PS10/30%/8 and sats 95%. He opens eyes to verbal stimuli and is able to squeeze hands on command very slightly. He has Art line to LW and on safe set. he has PICC line to JOSE JUAN and is infusing Insulin at 0.5 units/hr and last CBG low 200's,Levophed at 5 mcg/hr, and D5 at 25 ml/hr. He has OG in place and is infusing Pivot 1.5 at 45 ml/hr and 100 ml water flushes Q6. He has 16Fr temp torres draing to gravity clear yellow urine with hourly monitoring, rectal tube removed last night.
--- NOTE | 2021-07-12 09:47 | NUR ---
Patient was tiring on Spon. Mode and was placed back on AC 16/450/35/8 and sats 97%. No other changes from am note. Patient is going for CT with contrast of abdomen.
--- NOTE | 2021-07-12 11:30 | NUR ---
Patient is packed up and ready for CT. He continues to Harish down to 39 and drops sats and within minute he come back to baseline Sats >90 and HR 70-80's. PICC line infusingInsulin 1.5 units/hr, Levophed 5 mcg/min, D5 at 35ml/hr. OG infusing Pivot 1.5 at goal rate of 45 ml/hr and 100 ml water flushes Q6. No changes to vent settings AC 16/450/35/8 and sats >90%
--- NOTE | 2021-07-12 13:30 | NUR ---
Patient CBG increased to 250 and increased insulin gtt to 2 units/hr, Levophed decreased to 4 mcg/min. No other changes from previous note.
--- NOTE | 2021-07-12 18:26 | NUR ---
patient remains intubated without sedation. He has 7.5 ET and 25 at teeth with current vent settings of 16/450/35/8 and sats >90%. He has OG in place and is infusing Pivot 1.5 at goal rate of 45 ml/hr and water flushes q4 of 100 ml. He has PICC line JOSE JUAN and is infusing Levophed at 3 mcg/min, D5 at 50 ml.hr, Dilaudis at 0.5 mg/hr, Insulin at 2.5 units /hr last CBF low 200's. He has 16 Fr temp torres draining to gravity with hourly outpus and has had 1900 ml clear yellow urine. He has ramez opening eyes and knoding to questions to family and occassionally squeezing their hands. he continues to mony down to the 30 and Desats at smae time and comes back within minutes.
[2021-07-13 05:10] LABS: Hematocrit 20.9 % (37.0-53.0); Hemoglobin 6.5 g/dL (13.5-17.5)
[2021-07-13 05:29] LABS: Anion Gap 4 mmol/L (6-16); Blood Urea Nitrogen 39 mg/dL (8-24); Bun/Creatinine Ratio 38.2 (12.0-20.0); CO2, Blood 31 mmol/L (21-32); Calcium, Blood 7.8 mg/dL (8.5-10.1); Chloride, Blood 117 mmol/L (98-108); Creatinine, Blood 1.02 mg/dL (0.60-1.20); Glomerular Filtration Rate >60 (60-); Glucose, Blood 191 mg/dL (70-99); Phosphorus, Blood 3.8 mg/dL (2.5-4.9); Potassium, Blood 3.6 mmol/L (3.5-5.5); Sodium, Blood 152 mmol/L (136-145)
--- NOTE | 2021-07-13 07:17 | NUR ---
SHIFT SUMMARY: PATIENT REMAINS INTUBATED. HE WAS STARTED ON A DILAUDID FINE GRADER YESTERDAY AT 0.5 AND HE WAS VERY SEDATED ON INITIAL ASSESSMENT AND HAS BECOME MORE UNAROUSABLE OVER THE COURSE OF THE NIGHT. DILAUDID FINE GRADER WAS TITRATED DOWN TO 0.2 THIS MORNING AND COULD POTENTIALLY JUST BE TURNED OFF TODAY. PUPILS VERY SLUGGISH AND L PUPIL FIZED AND NONREACTIVE. HE WILL OPEN MOUTH AND STICK TONGUE OUT BUT THAT IS ALL HE HAS DONE TONIGHT. DOES NOT FOLLOW COMMANDS OR MOVE EXTREMITIES LIKE HE DID YESTERDAY PER REPORT. FAMILY UPDATED. HE HAS ONLY HAD ONE JAMEE EPISODE WHEN DOING A TURN AND HE DROPPED TO 27 AND THEN QUICKLY BACK UP. LEVO, D5NS, AND INSULIN ARE STILL INFUSING WITH UPDATED ORDERS FROM DR. PRUETT. 100-150/HR URINE OUTPUT. NO STOOL. 1 UNIT PRBC ORDERED TO BE INSUSED PER FLYNN FOR HGB OF 6.5. CONSENT RECEIVED FROM SISTER LUAN AT 0600
[2021-07-13 08:34] LABS: Mean Platelet Volume 10.9 fL (9.1-12.4); Platelet Count 381 K/mm3 (150-400)
--- NOTE | 2021-07-13 09:20 | NUR ---
ASSUMED CARE BEDSIDE REPORT FROM EUNICE OLIVIA AT 0700. PT INTUBATED, VENT SETTINGS AC/VC 16/450/8/40%. LUNGS COARSE ON LEFT SIDE, CLEAR ON RIGHT. SCANT SECRETIONS THROUGH ETT. WEAK COUGH/GAG REFLEX. DILAUDID GTT AT 0.2 MG/HR. PT OPENS EYES SPONT. DOES NOT FOLLOW COMMANDS. DOES NOT TRACK. PUPILS 2 MM, UNRESPONSIVE TO LIGHT. PT GRIMACES c CARE. SR ON MONITOR, RATE 70'S. LEVO GTT PLACED ON STANDBY, MAP>65. ART LINE TO L RADIAL, DRESSING C/D/I. LEFT HAND P/W/D, CAP REFILL<3 SEC. ZERO'D, GOOD WAVEFORM. PICC TO RUE, DRESSING C/D/I. ABD FLAT, SOFT. BT X 4. TUBE FEEDS AT GOAL, 45 ML/HR c 180 ML FLUSH q HR. NO RESIDUALS. NO BM, BOWEL CARE ORDERED. BRAVO PATENT, DRAINING CLEAR YELLOW URINE TO GRAVITY. ANASCARCA, 2-3+ EDEMA TO EXT. DRESSING TO COCCYX CHANGED, RED/PURPLE, NON BLANCHING, SKIN NOT INTACT. PHOTO UPDATED IN CHART. WILL CONTINUE TO MONITOR.
--- NOTE | 2021-07-13 17:38 | NUR ---
SHIFT SUMMARY PT REMAINS INTUBATED AND SEDATED. VENT SETTINGS UNCHANGED, AC/VC 16/450/8/40%. LUNGS CLEAR THROUGHOUT. SCANT SECRETIONS VIA ETT. SEDATION STARTED THIS SHIFT AFTER PT BECAME AGITATED, BITING TUBE, O2 SATS DECREASED AND BP DECREASED. LEVO STARTED FOR SHORT PERIOD OF TIME, CURRENTLY ON STANDBY. PROPOFOL GTT STARTED AT 15 MCG/KG/MIN, DILAUDID 0.2 MG/HR. NEURO ASSESSMENT UNCHANGED. SR, RATE 70'S. NO EPISODES OF BRADYCARDIA THIS SHIFT. BP STABLE. TUBE FEEDS AT GOAL, MINIMAL RESIDUALS. BOWEL CARE GIVEN, NO BM THIS SHIFT. BRAVO PATENT, DRAINED 1200 ML OF CLEAR YELLOW URINE TO GRAVITY. PT CONTINUES TO HAVE ANASCARA. ART LINE AND PICC PATENT, DRESSINGS C/D/I. WILL CONTINUE TO MONITOR UNTIL REPORT TO ONCOMING NURSE.
--- NOTE | 2021-07-13 21:01 | NUR ---
ASSUMED CARE AT 1900 PT LAYING IN BED INTUBATED WITH VENT SETTINGS AC/VC 16/450/8/40%; RR 16. PT SEDATED WITH PROPOFOL INFUSING AT 15MCG/KG/MIN AND DILAUDID INFUSING AT 0.2MG/HR; PT REACTIVE TO NOXIOUS STIMULI AND REPOSITIONING BY GRIMICING; ONCE PT OPENED HIS EYES ON COMMAND BUT FOLLOWED BY NOT BLINKING, TRACKING, OR FOLLOWING ANY OTHER COMMANDS. AFEBRILE. HR 60-70'S. SBP 100'S; MAP 65-70; LEVOPHED ON SB; ART LINE TO LT WRIST PATENT AND DRESSING C/D/I. PIVOT INFUSING VIA OG AT 45ML/HR (GOAL) WITH 180ML WATER FLUSHES Q4HR; 70ML FOR RESIDUALS. BRAVO IN PLACE AND DRAINING TO GRAVITY. INSULIN INFUSING AT 4UNITS/HR. D5W INFUSING AT 75ML/HR. SEE SHIFT ASSESSMENT FOR FULL ASSESSMENT.
--- NOTE | 2021-07-13 21:08 | NUR ---
UPDATE PT MAP 58-64; LEOPHED STARTED AGAIN AT 1MCG/MIN; MAP NOW 80.
--- NOTE | 2021-07-13 22:44 | NUR ---
UPDATE [facility] CALLED AND WAS PROVIDED AN UPDATE.
[2021-07-14 04:27] LABS: Hematocrit 22.5 % (37.0-53.0); Hemoglobin 7.1 g/dL (13.5-17.5)
[2021-07-14 04:54] LABS: Anion Gap 2 mmol/L (6-16); Blood Urea Nitrogen 41 mg/dL (8-24); Bun/Creatinine Ratio 43.3 (12.0-20.0); CO2, Blood 32 mmol/L (21-32); Chloride, Blood 114 mmol/L (98-108); Creatinine, Blood 0.95 mg/dL (0.60-1.20); Glomerular Filtration Rate >60 (60-); Glucose, Blood 183 mg/dL (70-99); Phosphorus, Blood 4.1 mg/dL (2.5-4.9); Potassium, Blood 3.8 mmol/L (3.5-5.5); Sodium, Blood 148 mmol/L (136-145)
--- NOTE | 2021-07-14 07:37 | NUR ---
END OF SHIFT SUMMARY NO ACUTE EVENTS OVERNIGHT. PT CONT TO BE INTUBATED WITH VENT SETTINGS AC/VC 16/450/8/40%. PT CONT TO BE RESPONSIVE TO PAINFUL STIMULI WITH GRIMICING FROM NOXIOUS STIMULI AND REPOSITIONING; PROPOFOL INFUSING AT 15MCG/KG/MIN; DILAUDID INFUSING AT 0.2MG/HR. AFEBRILE. HR 70-80'S. SBP 120-130'S; LEVOPHED INFUSING AT 1MCG/MIN. PIVOT INFUSING AT GOAL; RESIDUALS <100ML. BRAVO IN PLACE AND DRAINING TO GRAVITY. INSULIN INFUSING AT 1UNIT/HR. D5W INFUSING AT 75ML/HR. ART LINE TO LT WRIST IN PLACE AND PATENT. REPORT GIVEN TO EVELINA OLIVIA.
--- NOTE | 2021-07-14 12:57 | NUR ---
PT IS ON SBT. TURNED PROPOFOL OFF AND DILAUDID ACCOUNTS RECEIVABLE EXECUTIVE TO ACCOUNTS RECEIVABLE EXECUTIVE DOSE ONLY. PT IS OPENING EYE'S, ABLE TO TRACK, NODS HEAD YES OR NO, AND CAN SQUEEZE HANDS ON COMMAND. HAS BEEN OFF LEVOPHED AND INSULIN GTT. STARTED ON Q6HR GLUCOSE CHECK WITH HSS INSULIN.
--- NOTE | 2021-07-14 13:29 | NUR ---
Pt. is intubated, but does react to voice commands. Pt. does not seem to focus. Provided encouragement and corporate travel counselor and pastoral prayer. If family visits later in day I will return.
--- NOTE | 2021-07-14 14:06 | NUR ---
Review of pt in rounds with account processor. Plan is day by day pt kps score is30%. Ruby On Rails Developer will speak with family about porgnosis.
[2021-07-14 15:54] LABS: Anion Gap 1 mmol/L (6-16); Blood Urea Nitrogen 40 mg/dL (8-24); Bun/Creatinine Ratio 47.3 (12.0-20.0); CO2, Blood 34 mmol/L (21-32); Calcium, Blood 7.9 mg/dL (8.5-10.1); Chloride, Blood 114 mmol/L (98-108); Creatinine, Blood 0.85 mg/dL (0.60-1.20); Glomerular Filtration Rate >60 (60-); Glucose, Blood 195 mg/dL (70-99); Hematocrit 21.7 % (37.0-53.0); Hemoglobin 6.7 g/dL (13.5-17.5); Mean Corpuscular HGB 29.6 pg (26.0-34.0); Mean Corpuscular HGB Conc 30.9 g/dL (31.5-36.5); Mean Corpuscular Volume 96 fL (80-100); Mean Platelet Volume 10.7 fL (9.1-12.4); NRBC ABSOLUTE 0.02 K/mm3 (0.00-0.02); NRBC Auto 0.4 /100 WBC (0.0-0.2); Platelet Count 382 K/mm3 (150-400); RDW Standard Deviation 46.8 fL (35.1-46.3); Red Blood Cell Count 2.26 M/mm3 (4.30-5.90); Sodium, Blood 149 mmol/L (136-145); White Blood Cell Count 5.25 K/mm3 (4.00-11.30)
[2021-07-14 16:14] LABS: BAND PERCENT MAN 21 % (0-8); BASOPHILS PERCENT MAN 0 % (0-2); EOSINOPHILS PERCENT MAN 0 % (0-6); LYMPHOCYTES ABSOLUTE MAN 0.52 K/mm3 (0.84-5.20); LYMPHOCYTES PERCENT MAN 10 % (21-46); MONOCYTES ABSOLUTE MAN 0.05 K/mm3 (0.16-1.47); MONOCYTES PERCENT MAN 1 % (4-13); NEUTROPHILS ABSOLUTE MAN 4.67 K/mm3 (1.96-9.15); SEG NEUTROPHILS PERCENT MAN 68 % (41-73); TOTAL CELLS COUNTED 100
--- NOTE | 2021-07-14 18:07 | NUR ---
SUMMARY PT IS INTUBATED AND SEDATED WITH PROPOFOL. SBT TODAY THAT LASTED ABOUT 2 HRS BEFORE PT DESATTED TO 82%. VERY QUICKLY AFTER DESATTING PT BECAME BRADYCARDIC AND HYPOTENSIVE. HAD TO PLACE PT BACK ON AC SETTINGS AND 100% FOR AWHILE UNTIL HE RECOVERED. AFTER SATS RECOVERED BP AND HR FOLLOWED. DR. VIZCAINO PLACED ORDERS FOR DOPAMINE BUT HAVE NOT HAD TO START IT BECAUSE HR GREATER THAN 70 AND MAP GREATER THAN 65 MOST OF THE TIME. WHILE SEDATION WAS OFF PT WAS ABLE TO NOD HEAD YES OR NO, SQUEEZE HANDS, AND TRACKS WITH EYE'S. PT NODS YES WHEN ASKED IF HIS NAME IS JOHNNIE. H&H CAME BACK LOW TODAY. DR. VIZCAINO IS ORDERING 1 UNIT OF PRBC'S AND LOVENOX WAS D/C'D TODAY. INSULIN GTT WAS STOPPED TODAY AND HSS STARTED. LEVOPHED HAS BEEN OFF MOST OF THE DAY. THIS EVENING PT WAS WIDE AWAKE AND AGGRESSIVELY CHEWING ON ETT. HAD TO INCREASE PROPOFOL. SUPPOSITORY GIVEN TODAY DUE TO NO BM FOR A LONG TIME. TOLERATING TF WITH MINIMAL RESIDUAL. NO OTHER CHANGES.
--- NOTE | 2021-07-14 20:00 | NUR ---
ASSUMED CARE OF JOHNNIE, HE IS LOOKING AT THIS RN WHEN ADDRESSED BY NAME, SEEMS TO FOLLOW MY GAZE, ATTEMPTS TO SQUEEZE HAND ON COMMAND, NO FOOT/LEG MOVEMENT. PT ON PROPOFOL @ 20MCG, D5W @ 75ML, NS @ 10 PER PICC IN JOSE JUAN. BRAVO TO GRAVITY DRAINAGE WITH GOOD OUTPUT. EDEMA LESS TODAY, LEGS AND ARMS STILL 3-4+. ETT AT 25CM @ TEETH WHEN HE LEAVES THE BITE BLOCK IN PLACE, HE MOVES AND CHEWS ON THE TUBE. PIVOT TUBE FEEDING @ 45ML/HR.
--- NOTE | 2021-07-14 21:15 | NUR ---
ASSUMPTION OF CARE ASSUMED CARE OF PT AT THIS TIME FROM VIRGIE OLIVIA. PT RECEIVING PROPOFOL 20MCG/KG/MIN AND D5 75ML/HR. PT HAS HYDROMORPHONE HAIR TINTER. LEVOPHED HAS BEEN OFF THIS SHIFT. WHILE GETTING REPORT, PT OPENS EYES AND MAKES EYE CONTACT. HE IS GNAWING ON TUBE BUT THEN CLOSES EYES AND RETURNS TO SLEEP. PT DOES NOT FOLLOW ANY COMMANDS. TUBE FEEDING INFUSING AT GOAL RATE. TEMP BRAVO PATENT DRAINING PALE YELLOW URINE. PT TO RECEIVE 1 UNIT PRBCS, SEE TAR DOCUMENTATION.
--- NOTE | 2021-07-14 21:53 | NUR ---
CARE GIVEN TO CARMELITA RAWLS RN.
[2021-07-15 04:04] LABS: BASOPHILS PERCENT AUTO 0 % (0-2); EOSINOPHILS ABSOLUTE AUTO 0.03 K/mm3 (0.00-0.68); EOSINOPHILS PERCENT AUTO 1 % (0-6); Hematocrit 24.1 % (37.0-53.0); Hemoglobin 7.6 g/dL (13.5-17.5); IMMATURE GRAN ABSOLUTE AUTO 0.04 K/mm3 (0.00-0.10); IMMATURE GRAN PERCENT AUTO 1 % (0-1); LYMPHOCYTES ABSOLUTE AUTO 0.89 K/mm3 (0.84-5.20); LYMPHOCYTES PERCENT AUTO 17 % (21-46); MONOCYTES ABSOLUTE AUTO 0.26 K/mm3 (0.16-1.47); MONOCYTES PERCENT AUTO 5 % (4-13); Mean Corpuscular HGB 29.3 pg (26.0-34.0); Mean Corpuscular HGB Conc 31.5 g/dL (31.5-36.5); Mean Corpuscular Volume 93 fL (80-100); Mean Platelet Volume 10.6 fL (9.1-12.4); NEUTROPHILS ABSOLUTE AUTO 4.11 K/mm3 (1.96-9.15); NEUTROPHILS PERCENT AUTO 77 % (41-73); NRBC ABSOLUTE 0.02 K/mm3 (0.00-0.02); NRBC Auto 0.4 /100 WBC (0.0-0.2); Platelet Count 396 K/mm3 (150-400); RDW Coefficient Variation 13.8 % (11.7-14.2); RDW Standard Deviation 45.3 fL (35.1-46.3); Red Blood Cell Count 2.59 M/mm3 (4.30-5.90); White Blood Cell Count 5.33 K/mm3 (4.00-11.30)
--- NOTE | 2021-07-15 04:28 | NUR ---
BRADYCARDIA & HYPOXIA A FEW MINUTES AFTER REPOSITIONING PT, HE BEGAN TO JAMEE DOWN FROM 70S TO 20S AND OXYGEN SATURATION DECREASED FROM MID 90S TO 60S. PT BECAME UNRESPONSIVE. THIS RN COULD NOT FEEL A CAROTID PULSE, ALTHOUGH RADIAL ART LINE CONTINUED TO HAVE SMALL WAVEFROM AND SHOWING HYPOTENSION WITH SBP IN 50S. ETCO2 DECREASED TO 20. RT AT BEDSIDE AND BEGAN BAGGING PT. LEVOPHED INITIATED AT 15MCG/MIN AND THEN INCREASED TO 30MCG/MIN. PROPOFOL ON STANDBY. HR AND BP INCREASING ALONG WITH IMPROVED O2 SATURATIONS. LEVOPHED OFF, PROPOFOL RESTARTED.
[2021-07-15 04:34] LABS: Alanine Aminotransfer (ALT/SGP <6 U/L (12-78); Albumin, Blood 0.9 g/dL (3.4-5.0); Albumin/Globulin Ratio 0.2 (0.8-1.8); Alk Phos 416 U/L (50-136); Anion Gap 2 mmol/L (6-16); Aspartate Aminotrans (AST/SGOT 16 U/L (12-37); Bilirubin, Total 0.3 mg/dL (0.1-1.0); Blood Urea Nitrogen 38 mg/dL (8-24); Bun/Creatinine Ratio 49.2 (12.0-20.0); CO2, Blood 33 mmol/L (21-32); Chloride, Blood 112 mmol/L (98-108); Creatinine, Blood 0.77 mg/dL (0.60-1.20); Globulin, Blood 4.8 g/dL (2.2-4.0); Glomerular Filtration Rate >60 (60-); Glucose, Blood 319 mg/dL (70-99); Potassium, Blood 3.9 mmol/L (3.5-5.5); Sodium, Blood 147 mmol/L (136-145); Total Protein, Blood 5.7 g/dL (6.4-8.2); Triglycerides 145 mg/dL (30-160)
--- NOTE | 2021-07-15 05:52 | NUR ---
SHIFT SUMMARY PT REMAINS INTUBATED WITH VENT SETTINGS AC/VC 16/450/8/60%. PT RECEIVING PROPOFOL 35MCG/KG/MIN AND D5 75ML/HR. DILAUDID ELEVATOR REPAIRER APPRENTICE AT BEDSIDE. TUBE FEEDING INFUSING AT GOAL RATE WITH MINIMAL RESIDUALS. BRAVO PATENT AND DRAINING TO GRAVITY. SEE PREVIOUS NOTE REGARDING BRADYCARDIA AND HYPOXIA. SINCE THIS EPISODE, PT HAS BEEN SINUS RHYTHM WITH HR 60S-70S. SBP 110S, STRONG PULSES. SPO2 >95%. PT GRIMACES AND MOVES HEAD SIDE TO SIDE WITH NOXIOUS STIMULI. WILL REPORT TO ONCOMING RN.
[2021-07-15 12:43] LABS: Potassium, Blood 3.9 mmol/L (3.5-5.5)
--- NOTE | 2021-07-15 17:37 | NUR ---
SUMMARY PT INTUBATED. HAS BEEN OFF SEDATION SINCE 999 AND ON SBT WITH PS 10, FIO2 40%. PT IS ALERT AND ABLE TO NOD YES AND NO TO QUESTIONS. CAN MANAGER CONTRACT R HAND ON COMMAND. FLACCID L ARM AND BLE. PT HAS NOT BEEN CHEWING ON ETT MUCH YESTERDAY. ALSO HAS NOT BEEN THRASHING HEAD MUCH. DENIES PAIN. BP AND HR HAS BEEN STABLE AND NO DESATURATION. GOT ONE DOSE OF LASIX AND HAS BEEN DIURESING WELL. WILL LEAVE PT ON SPONTANEOUS UNLESS HE STARTS TO SHOW SIGNS OF TIRING OUT.
--- NOTE | 2021-07-15 19:30 | NUR ---
RECEIVED PT FROM EVELINA, HE IS LYING IN BED LOOKING AROUND, ON VENTILATOR SPONTANEOUS, PS 12, PEEP 8, 40% FIO2. ETT AND OG IN MOUTH, HE IS GNAWING ON THEM, TAPE HAS BEEN DISINTEGRATED IN HIS MOUTH, CLEANED OUT. REMINDING HIM THAT HE NEEDS THAT RIGHT NOW. OG TO PIVOT 45ML/HR WITH FREE WATER 175ML Q4H, D5W @ 50ML/HR, NS @ 10ML/HR. DILAUDID CHILD CARE EDUCATION COORDINATOR HOOKED UP, PT SHAKES HEAD TO PAIN QUESTION. ABD SOFT, GRIMACE WITH PALPATION, BRAVO TO GRAVITY DRAINAGE WITH LARGE CLEAR YELLOW URINE OUTPUT, EXTREMETIES WITH 2+ EDEMA, PEDAL PULSES STRONG. UNABLE TO MOVE TOES ON COMMAND, NODS THAT HE IS AT THE HOSPITAL, NODS THAT HE WANTS TO WATCH TV, SQUEEZES RIGHT HAND.
--- NOTE | 2021-07-15 22:26 | NUR ---
DURING JOHNNIE'S BATH AND REPOSITION, HE WAS NOTED TO HAVE A GELATINOUS DISCHARGE FROM HIS RECTUM. HIS DRESSING WAS CHANGED ON HIS COCCYX. THE WOUND CONTINUES TO HAVE PURPLISH COLORING AND EXCORIATION AT THE ANTERIOR SUPERIOR BORDER. DURING HIS RETURN TO HIS BACK HE WAS HOLDING HIS BREATH AND PLAYING WITH THE ETT, HE BEGAN TO JAMEE DOWN TO 33, HE WAS REMOVED FROM THE VENTILATOR AND BAGGED. HIS SATS RETURNED QUICKLY TO 99% AND HE WAS LOOKING AT STAFF. HE WAS BRIEFLY PLACED ON VC MODE THEN AFTER A COUPLE OF MINUTES RETURN TO SPONTANEOUS WITH PRESSURE SUPPORT.
--- NOTE | 2021-07-15 23:18 | NUR ---
JOHNNIE KEEPS SLOWING HIS HEART RATE WITH BREATH HOLDING, R/T IS PLACING HIM BACK ON AC 16/450/8/30%.
--- NOTE | 2021-07-16 05:54 | NUR ---
JOHNNIE HAS CONTINUED TO MANIPULATE THE TUBES IN HIS MOUTH TO THE SIDE, HE IS BEGINNING TO FIGHT HIS ORAL CARE. HE IS FOLLOWING STAFF IN THE ROOM WITH HIS EYES, HE IS ABLE TO MOVE HIS RIGHT ARM BY BENDING AT THE ELBOW, CONTINUES WITH GRIPPING, UNABLE TO MOVE/WIGGLE TOES ON COMMAND. CONTINUES TO HAVE EPISODES OF SATS AND HEART RATE DROPPING, BOTTOM CLEANED AND WOUND DRESSED DURING BATH. NO RESULTS FROM BISACODYL SUPPOSITORY. WILL CONTINUE TO MONITOR AND TREAT.
[2021-07-16 07:13] LABS: Anion Gap 0 mmol/L (6-16); Blood Urea Nitrogen 32 mg/dL (8-24); CO2, Blood 36 mmol/L (21-32); Chloride, Blood 113 mmol/L (98-108); Creatinine, Blood 0.78 mg/dL (0.60-1.20); Glomerular Filtration Rate >60 (60-); Glucose, Blood 247 mg/dL (70-99); Phosphorus, Blood 3.8 mg/dL (2.5-4.9); Potassium, Blood 3.7 mmol/L (3.5-5.5); Sodium, Blood 149 mmol/L (136-145)
[2021-07-16 15:33] LABS: Potassium, Blood 3.5 mmol/L (3.5-5.5)
--- NOTE | 2021-07-16 18:23 | NUR ---
SUMMARY PT INTUBATED, NOT SEDATED. HAS BEEN VERY SLEEPY TODAY. WILL GRIMACE WITH CARE BUT QUICKLY FALLS BACK TO SLEEP. ATTEMPTED SBT THIS AM BUT PT FAILED WITHIN MINUTES DUE TO NOT PULLING GOOD VOLUMES. PT WAS AWAKE AT THE TIME BUT WOULD NOT TAKE ENOUGH VOLUME AND WAS ONLY BREATHING 8/MIN. SINCE THEN PT HAS BEEN SLEEPING. GOT ANOTHER DOSE OF LASIX TODAY. NO EPISODES OF BRADYING DOWN. BP STABLE TODAY. NO OTHER CHANGES.
[2021-07-17 04:30] LABS: Hematocrit 24.1 % (37.0-53.0); Hemoglobin 7.4 g/dL (13.5-17.5)
[2021-07-17 04:50] LABS: Anion Gap 2 mmol/L (6-16); Blood Urea Nitrogen 31 mg/dL (8-24); Bun/Creatinine Ratio 43.7 (12.0-20.0); CO2, Blood 37 mmol/L (21-32); Calcium, Blood 8.1 mg/dL (8.5-10.1); Chloride, Blood 111 mmol/L (98-108); Creatinine, Blood 0.71 mg/dL (0.60-1.20); Glomerular Filtration Rate >60 (60-); Glucose, Blood 188 mg/dL (70-99); Phosphorus, Blood 3.9 mg/dL (2.5-4.9); Potassium, Blood 3.2 mmol/L (3.5-5.5); Sodium, Blood 150 mmol/L (136-145)
--- NOTE | 2021-07-17 05:31 | NUR ---
Oxygen sats dropping through out night, adjustments made to FiO2 as needed. attempts to push out ETT with tongue and bites on tube. When FiO2 drops, become bradycardiac with rates in 40's. Will increase as O2 sats increase. FiO2 at this time 60% Generalized 3+ edema, lungs diminished bilat. Dilaudid given for pain as needed via G[employer] T[employer]MENT CONSULTANT pump. Pain increases with turns, will thrash and bite more on tube. Calms and rests with eyes closed after
--- NOTE | 2021-07-17 05:40 | NUR ---
PT REQUIRING FI02 @ 100% PER RN. CHANGED PEEP TO 10. RN AWARE AND NOTIFIED. RN TO RELAY CHANGE TO MD.
--- NOTE | 2021-07-17 08:00 | NUR ---
INITIAL ASSESSMENT PATIENT INTUBATED. PATIENT NOT ON SEDATION. TEETH LOOSE. PATIENT CHEWS ON ETT WITH BITE BLOCK IN PLACE. PATIENT RESPONDS TO YES AND NO QUESTIONS WITH NODDING AND SHAKING OF HEAD. PATIENT ABLE TO SQUEEZE WITH R HAND AND LIFT HAND ABOUT 2 INCHES OFF OF BED. BARELY ABLE TO VISUALIZE PATIENT MOVE L HAND. PATIENT UNABLE TO LIFT LUE OFF BED. LEGS AND FEET FLACCID. PATIENT AFEBRILE. PATIENT DENIES PAIN. PATIENT ON AC 16, TV 450, PEEP 10 AND 60% FIO2. LLL DIMINISHED; ALL OTHER LUNG LOBES CLEAR TO AUSCULTATION. MODERATE AMOUNT OF FROTHY, WHITE SPUTUM BEING SUCTIONED FROM ETT. PATIENT IN SR, HR IN THE 60S. SBP 1-TEENS TO 120S. BUES AND BLES EDEMATOUS. SCDS IN PLACE. ABDOMEN SOFT, NONTENDER, NONDISTENDED, WITH NORMOACTIVE BOWEL SOUNDS NOTED. PIVOT 1.5 INFUSING AT GOAL RATE OF 45 MLS/ HOUR WITH 175 MLS WATER FLUSH Q4H. RESIDUAL OF 60 MLS OBTAINED AND REINSTILLED. LAST BM DOCUMENTED 07/15. BRAVO DRAINING DARK YELLOW COLORED URINE. SCROTUM EDEMATOUS. STAGE 2 ULCER TO COCCYX. SKIN FRAGILE AND PALE. SCATTERED BRUISES AND SCABS NOTED. HANDS HAVE CRACKS AND ARE DISCOLORED. D5 INFUSING AT 50 MLS/ HOUR, NS TKO. BED LOW, CALL LIGHT IN REACH. WILL CONTINUE TO MONITOR PATIENT FREQUENTLY THROUGHOUT SHIFT.
--- NOTE | 2021-07-17 09:00 | NUR ---
DR. ADAME UPDATED ON PATIENT STATUS. INFORMED THAT PATIENT HAD TMAX OF 99.6 DEGREES FAHRENHEIT ON RAILWAY SHUNTER. INFORMED THAT HEMOGLOBIN 7.4 AND SODIUM 150 THIS AM. INFORMED THAT POTASSIUM 3.2 THIS AM AND THAT PATIENT RECEIVED 20 MEQ KCL TO REPLACE. INFORMED THAT PATIENT JAMEE INTO 40S AROUND 3 OR 4 TIMES ON RAILWAY SHUNTER PER RAILWAY SHUNTER RN. INFORMED THAT RAILWAY SHUNTER REPORTED PEEP INCREASED FROM 8 TO 10 AND THAT FIO2 ON RAILWAY SHUNTER RANGED ANYWHERE FROM 40 TO 100%. INFORMED THAT RAILWAY SHUNTER REPORTED PATIENT HAD COPIOUS AMOUNTS OF THICK, CAMPBELL/ WHITE SECRETIONS SUCTIONED FROM ETT. DR. ADAME STATED HE WOULD PUT ORDERS IN.
--- NOTE | 2021-07-17 12:30 | NUR ---
PATIENT AFEBRILE. NO ACUTE CHANGES IN NEURO FUNCTION NOTED. PATIENT GIVEN PRN ATIVAN FOR ANXIETY. PATIENT APPEARS MUCH MORE COMFORTABLE AT THIS TIME. PATIENT WEAN LASTED FOR ABOUT AN HOUR. PATIENT BACK ON AC AFTER PRN ATIVAN GIVEN. PEEP DECREASED EARLIER FROM 10 TO 8. HR 25 TO 60S. SBP 1-TEENS TO 140S. TF AT NEW GOAL RATE OF 50 MLS/ HOUR. RESIDUAL OF ZERO. BLOOD SUGAR 206; COVERAGE GIVEN. D5 INFUSING AT 100 MLS/ HOUR. NO OTHER ACUTE CHANGES TO NOTE ON AT THIS TIME. WILL CONTINUE TO MONITOR.
--- NOTE | 2021-07-17 16:00 | NUR ---
PATIENT AFEBRILE. NO SIGNS OF PAIN NOTED. HR IN THE 60S. SBP IN THE 130S. VENT SETTINGS REMAIN UNCHANGED. TF RESIDUAL 70 MLS; REINSTILLED. NO OTHER ACUTE CHANGES TO NOTE ON AT THIS TIME. WILL CONTINUE TO MONITOR.
[2021-07-17 18:28] LABS: Anion Gap 1 mmol/L (6-16); Blood Urea Nitrogen 30 mg/dL (8-24); Bun/Creatinine Ratio 45.7 (12.0-20.0); CO2, Blood 36 mmol/L (21-32); Calcium, Blood 8.1 mg/dL (8.5-10.1); Chloride, Blood 112 mmol/L (98-108); Creatinine, Blood 0.66 mg/dL (0.60-1.20); Glomerular Filtration Rate >60 (60-); Glucose, Blood 214 mg/dL (70-99); Potassium, Blood 3.6 mmol/L (3.5-5.5); Sodium, Blood 149 mmol/L (136-145)
--- NOTE | 2021-07-17 19:21 | NUR ---
SHIFT SUMMARY PATIENT REMAINED INTUBATED. PATIENT REMAINED RESPONDING TO YES AND NO QUESTIONS. LEGS REMAINED FLACCID. PATIENT REMAINED ABLE TO SQUEEZE WITH R HAND. PATIENT OCCASIONALLY ANXIOUS AND BITING ON ETT. PRN ATIVAN GIVEN THIS AFTERNOON AND RELAXED PATIENT VERY WELL. PATIENT DENIED PAIN ALL SHIFT. PATIENT REMAINED AFEBRILE. PATIENT ON AC 16, TV 450, PEEP 8 TO 10 AND FIO2 RANGED FROM 40 TO 100%. PATIENT ON WEAN FOR AROUND AN HOUR; PATIENT PLACED BACK ON AC AFTER PRN ATIVAN GIVEN AND PATIENT PULLING LOW MINUTE VENTILATION. HR RANGED FROM 25 TO 60S. IT APPEARED PATIENT DESATTED INTO 70S AND BRADIED WHEN HE WAS ANXIOUS AND CHEWING ON ETT DESPITE BITE BLOCK BEING IN PLACE. SBP RANGED FROM LOW 100S TO 150S. LOVENOX ADDED THIS SHIFT. NO BM THIS SHIFT. TF GOAL INCREASED FROM 45 TO 50 MLS/ HOUR THIS SHIFT. HIGHEST RESIDUAL 70 MLS. BRAVO DRAINED 1800 MLS OF DARK YELLOW URINE. NO CHANGES TO SKIN NOTED. PATIENT HARD TURNED Q2H. D5 INCREASED FROM 50 TO 100 MLS. DOPAMINE DRIP ORDER CHANGED TO TURN ON AND TITRATE FOR SUSTAINED HR LESS THAN 30. 20 MEQ KCL GIVEN THIS AM FOR POTASSIUM OF 3.2. LAST POTASSIUM 3.6. BLOOD SUGARS IN THE 200S. BED LOW, CALL LIGHT IN REACH. NO DISCOMFORT NOTED AT THIS TIME. REPORT GIVEN TO ASSUMING BOX GLUER NURSE.
[2021-07-18 03:47] LABS: BASOPHILS ABSOLUTE AUTO 0.02 K/mm3 (0.00-0.23); BASOPHILS PERCENT AUTO 0 % (0-2); EOSINOPHILS ABSOLUTE AUTO 0.03 K/mm3 (0.00-0.68); EOSINOPHILS PERCENT AUTO 1 % (0-6); Hematocrit 24.4 % (37.0-53.0); Hemoglobin 7.5 g/dL (13.5-17.5); IMMATURE GRAN ABSOLUTE AUTO 0.01 K/mm3 (0.00-0.10); IMMATURE GRAN PERCENT AUTO 0 % (0-1); LYMPHOCYTES ABSOLUTE AUTO 0.91 K/mm3 (0.84-5.20); LYMPHOCYTES PERCENT AUTO 20 % (21-46); MONOCYTES ABSOLUTE AUTO 0.29 K/mm3 (0.16-1.47); MONOCYTES PERCENT AUTO 6 % (4-13); Mean Corpuscular HGB 29.1 pg (26.0-34.0); Mean Corpuscular HGB Conc 30.7 g/dL (31.5-36.5); Mean Corpuscular Volume 95 fL (80-100); Mean Platelet Volume 10.2 fL (9.1-12.4); NEUTROPHILS ABSOLUTE AUTO 3.34 K/mm3 (1.96-9.15); NEUTROPHILS PERCENT AUTO 73 % (41-73); Platelet Count 425 K/mm3 (150-400); RDW Coefficient Variation 13.7 % (11.7-14.2); RDW Standard Deviation 46.5 fL (35.1-46.3); Red Blood Cell Count 2.58 M/mm3 (4.30-5.90)
[2021-07-18 04:20] LABS: Albumin, Blood 0.9 g/dL (3.4-5.0); Anion Gap 3 mmol/L (6-16); Blood Urea Nitrogen 31 mg/dL (8-24); Bun/Creatinine Ratio 49.6 (12.0-20.0); CO2, Blood 36 mmol/L (21-32); Calcium, Blood 8.1 mg/dL (8.5-10.1); Chloride, Blood 109 mmol/L (98-108); Creatinine, Blood 0.63 mg/dL (0.60-1.20); Glomerular Filtration Rate >60 (60-); Glucose, Blood 278 mg/dL (70-99); Phosphorus, Blood 4.3 mg/dL (2.5-4.9); Potassium, Blood 3.6 mmol/L (3.5-5.5); Sodium, Blood 148 mmol/L (136-145)
--- NOTE | 2021-07-18 05:46 | NUR ---
More alert and answering questions. FiO2 at 100% at start of shift, titrated down to 70%. No major episodes of desats through night. HR dropped on occations into high 50's then returned quickly to 60's. medicated with ativan for anxiety twice during shift, responds well. Nods yes when asked if helps tolerate ETT better. Not fighting tube and attempting to push tube out with tongue as much this shift. Dressing changed to coccyx. Foul odor noted, large amount of sloughing and escar noted when compared with pictures in chart
--- NOTE | 2021-07-18 08:20 | NUR ---
INITIAL ASSESSMENT PATIENT INTUBATED. PATIENT NOT ON SEDATION. PATIENT RESPONDS TO VERBAL STIMULI. PATIENT ABLE TO NOD AND SHAKE HEAD TO ANSWER YES AND NO QUESTIONS. PATIENT CHEWS ON ETT WHEN FRUSTRATED OR ANXIOUS. PATIENT CALM AND COOPERATIVE AT THIS TIME. PATIENT ABLE TO SQUEEZE WITH R HAND. NO MOVEMENT NOTED TO OTHER EXTREMITIES. PATIENT AFEBRILE. PATIENT DENIES PAIN. PATIENT ON ACVC 16, TV 450, PEEP 8 AND 70% FIO2. LUNGS CLEAR THROUGHOUT. SMALL AMOUNT OF FROTHY, WHITE SECRETIONS SUCTIONED FROM ETT. PATIENT IN SR, HR IN THE 60S. SBP 120S TO 130S. HYPERACTIVE BOWEL SOUNDS NOTED. NO BM DOCUMENTED IN 3 DAYS. PRN SUPPOSITORY GIVEN. TF INFUSING AT GOAL RATE OF 50 MLS/ HOUR WITH 175 ML WATER FLUSH Q4H. RESIDUAL OF ZERO THIS AM. BRAVO DRAINING CLEAR YELLOW COLORED URINE. PATIENT GIVEN 40 MG LASIX PUBLIC SAFETY POLICE ON STUDY HALL SUPERVISOR. SKIN PALE, FRAGILE AND BRUISED. HANDS CRACKED AND DISCOLORED. SCATTERD SCABS NOTED. STAGE 2 ULCER TO COCCYX NOTED. MEPILEX REMOVED. NEW PICTURES OBTAINED AND PLACED IN CHART. NEW MEPILEX APPLIED. D5 INFUSING AT 100 MLS/ HOUR, NS TKO. BED LOW, CALL LIGHT IN REACH. WILL CONTINUE TO MONITOR PATIENT FREQUENTLY THROUGHOUT SHIFT.
--- NOTE | 2021-07-18 10:23 | NUR ---
Spiritual care visit. Pt. is intubated, but is awake and seems to follow with his eyes. Pt. displayed evidence of remembering previous spiritual care visits. Pt. is able to nod to yes/no questions. Pt. displayed evidence of being agitated, but it is unclear what the cause is. Prayed for Pt. Will seek to connect with Pts. sister later in the day.
--- NOTE | 2021-07-18 12:20 | NUR ---
PATIENT HAS TEMP OF 99.8 DEGREES FAHRENHEIT. PATIENT LETHARGIC. PATIENT RECEIVED ZYPREXA MM A COUPLE OF HOURS AGO. PATIENT IS RESPONDING TO NOXIOUS STIMULI WITH GRIMACING AND FROWNING OF FACE. PATIENT IS NOT MOVING ANY OF HIS EXTREMITIES. PATIENT IS NOT FOLLOWING ANY COMMANDS OR NODDING/ SHAKING HEAD TO ANSWER YES AND NO QUESTIONS. HR IN THE 70S. SBP IN THE 20S. PATIENT REMAINS ON AC SETTINGS, FIO2 AT 45%. WATER FLUSH INCREASED THIS AM TO 200 MLS EVERY 6 HOURS. TF RESIDUAL OF 25 MLS. BLOOD SUGAR 257; COVERAGE GIVEN. PATIENT'S COUSIN, RICHIE, HERE TO SPEAK WITH PATIENT TO SEE IF HE CAN COMMUNICATE HIS WISHES IF HE WERE TO BE EXTUBATED AND HIS BREATHING DID NOT DO WELL (CODE STATUS UPON EXTUBATION). PATIENT HAD MINIMAL COMMUNICATION WITH RICHIE HE IS LETHARGIC. PALLIATIVE CARE NURSE, GELACIO, SPOKE WITH RICHIE IN ROOM FOR A GOOD PERIOD OF TIME. RICHIE WILL UPDATE SISTER, LUAN. NO OTHER ACUTE CHANGES TO NOTE ON AT THIS TIME. WILL CONTINUE TO MONITOR.
--- NOTE | 2021-07-18 16:00 | NUR ---
PATIENT HAS TEMP OF 100.3 DEGREES FAHRENHEIT. PATIENT IS MORE AWAKE THAN AT 1200 ASSESSMENT. HR 60S TO 70S. SBP IN THE 120S. PATIENT ON SPONTANEOUS PRESSURE SUPPORT OF 12/8, 45% FIO2. WEAN FAILED AT 1300 AND 1500 VENT ALARMING FOR APNEA VENTILATION. TF RESIDUAL OF 110 MLS REINSTILLED. NO OTHER CHANGES TO NOTE ON AT THIS TIME. WILL CONTINUE TO MONITOR.
--- NOTE | 2021-07-18 18:19 | NUR ---
family called for update review of weaning trailas will see how he does in morning.
--- NOTE | 2021-07-18 18:48 | NUR ---
SHIFT SUMMARY PATIENT REMAINED INTUBATED. PATIENT MOSTLY RESPONDED TO VERBAL STIMULI, ABLE TO NOD/ SHAKE HEAD TO ANSWER YES AND NO QUESTIONS, AND ABLE TO SQUEEZE WITH R HAND. PATIENT WAS SOMNOLENT AFTER ZYPREXA, THAT WAS ORDERED THIS SHIFT, BUT A FEW HOURS LATER PATIENT BACK TO PRIOR ALERTNESS. PATIENT ANXIOUS AT TIMES AND CHEW ON ETT. PATIENT GIVEN PRN DILAUDID OT THIS SHIFT AFTER PATIENT COMMUNICATED HE WAS IN PAIN. PATIENT HAD TMAX OF 100.3 DEGREES FAHRENHEIT. PATIENT ON AC 16, TV 450, PEEP 8 AND 70% AT BEGINNING OF SHIFT. PATIENT DECREASED TO 45% THIS SHIFT. PATIENT FAILED WEAN AT 1300 AND 1500 WAS ALARMING FOR BACKUP APNEA VENTILATION (POSSIBLY DUE TO SOMNOLENCE). PATIENT WAS ABLE TO TOLERATE WEAN AT 1515 FOR A COUPLE OF HOURS UNTIL APNEA ALARMED X 2 AND ALSO ALARMED FOR LOW MINUTE VENTILATION. LUNGS REMAINED CLEAR TO AUSCULTATION. PATIENT HAD SMALL AMOUNT OF SECRETIONS FROM ETT. PATIENT SR, HR 60S TO 70S. SBP 1-TEENS TO 130S. BOWEL SOUNDS REMAINED HYPERACTIVEE. TF REMAINED AT GOAL RATE. RESIDUALS ZERO TO 110 MLS. TF FLUSH INCREASED TO 200 MLS Q6H. NO BM THIS SHIFT. PRN SUPPOSITORY GIVEN. BRAVO DRAINED 3000 MLS OF CLEAR YELLOW URINE. PATIENT RECEIVED 40 MG IV LASIX EARLY THIS AM. NO CHANGES TO SKIN NOTED. PATIENT REPOSITIONED Q2H. WOUND CLINIC CONSULTED THIS SHIFT FOR COCCYX WOUND. TWO NURSES FROM WOUND CLINIC CAME UP, ASSESSED WOUND, RECOMMENDED TREATMENT AND PERFORMED WOUND CARE. D5 REMAINED INFUSING AT 100 MLS/ HOUR AND NS TKO. ZYPREXA DC'D AFTER SOMNOLENT EFFECT ON PATIENT. BLOOD SUGARS 200S TO 300S THIS SHIFT. LONG ACTING INSULIN INCREASED THIS SHIFT. COUSIN, RICHIE, CAME IN TO VISIT WITH PATIENT AND TRY TO SEE IF PATIENT COULD COMMUNICATE HIS WISHES ON CODE STATUS IF HE DOES END UP EXTUBATED SOON. PATIENT LETHARGIC SO CONVERSATION WAS NOT BLACK AND WHITE. SISTER, LUAN, TO BE CALLED PRE-EXUBATION IN ORDER TO DISCUSS CODE STATUS. PATIENT APPEARS COMFORTABLE AT THIS TIME. BED LOW, CALL LIGHT IN REACH. WILL BE GIVING REPORT TO ONCOMING HUMAN RESOURCE PROFESSIONAL NURSE SHORTLY.
[2021-07-19 07:37] LABS: Anion Gap 2 mmol/L (6-16); Blood Urea Nitrogen 31 mg/dL (8-24); Bun/Creatinine Ratio 50.2 (12.0-20.0); CO2, Blood 37 mmol/L (21-32); Calcium, Blood 8.1 mg/dL (8.5-10.1); Chloride, Blood 107 mmol/L (98-108); Creatinine, Blood 0.62 mg/dL (0.60-1.20); Glomerular Filtration Rate >60 (60-); Glucose, Blood 225 mg/dL (70-99); Magnesium, Blood 2.2 mg/dL (1.6-2.4); Phosphorus, Blood 4.3 mg/dL (2.5-4.9); Potassium, Blood 3.5 mmol/L (3.5-5.5); Sodium, Blood 146 mmol/L (136-145)
[2021-07-19 07:42] LABS: Hematocrit 24.1 % (37.0-53.0); Hemoglobin 7.3 g/dL (13.5-17.5)
--- NOTE | 2021-07-19 11:27 | NUR ---
SBT PT PLACED ON PRESSURE SUPPORT 7/8, FIO2 45% FOR OVER 2 HOURS. PT DID NOT TOLERATE WELL WITH TIDAL VOLUMES AROUND 250-[address] ADAME CALLED AND UPDATED PT SISTER LUAN ABOUT SBT. DISCUSSED NEED FOR TRACH AND PEG TUBE. LUAN IS AGREEABLE TO TRACH AND PEG PER DR ADAME. PT SWITCHED BACK TO AC 16, TV 450, PEEP 8, FIO2 45% AT THIS TIME. WILL CONTINUE TO MONITOR.
--- NOTE | 2021-07-19 16:34 | NUR ---
Met with ranjan and account management assistant to review pt prognois and care needs. Dr martin presented that pt may surivie the event with skilled nursing care. We discussed and reviewed the past few years of his life have been very traumatic. They are stuggling because they think he would not want treatment. Family meeting to discuss care. pt sister wants to give him every oportunity. Will follow up with family.
--- NOTE | 2021-07-19 17:51 | NUR ---
SHIFT SUMMARY NO ACUTE CHANGES THIS SHIFT. PT REMAINS INTUBATED. PT NOT SEDATED THIS SHIFT. PT WITH PERIODS OF OPENING EYES SPONTANEOUSLY AND SHAKING HEAD, BUT DOES NOT FOLLOW ANY DIRECTIONS. PT LOOKS TOWARDS VOICE. PT WITHDRAWS LOWER EXTREMITIES TO NOXIOUS STIMULI. VENT SETTINGS REMAIN AC 16, TV 450, PEEP 8, FIO2 45% AFTER SBT THIS AM. PICC TO JOSE JUAN REMAINS C/D/I, NS INFUSING TKO AND D5W AT 100 ML/HR. OGT IN PLACE WITH TF INFUSING AT GOAL RATE. LOOSE FRONT TEETH NOTED DURING ORAL CARE. PT BITES DOWN ON ETT FORCEFULLY DURING ORAL CARE. BRAVO TEMP PROBE REMAINS IN PLACE WITH YELLOW URINE OUTPUT NOTED. VITAL SIGNS STABLE THIS SHIFT. PT SISTER AND COUSIN UPDATED BY DR ADAME. WILL CONTINUE TO MONITOR AND REPORT OFF TO ONCOMING RN.
--- NOTE | 2021-07-19 19:54 | NUR ---
SHIFT ASSESSMENT PT INTUBATED, OFF SEDATION. VENT SETTINGS: AC-16/450/8/ 45% c O2 SATS > 92%. CONTINOUSLY BITING/ FIDDLING WITH BITE BLOCK WITH TONGUE. RT IN ROOM ADJUSTING BITE BLOCK. ET TUBE-7.5/ 25 @ TEETH. PT ALERT, TRACKING THIS NURSE AND RT. STRONG POWER TONG OPERATOR STRENGTH OF R HAND BUT UNABLE TO LIFT ARM, FAINT MOVEMENT OF LEFT FINGERS c NO POWER TONG OPERATOR, NO MOVEMENT OF BLE. NSR ON THE MOLD MAKER PLASTIC MOLDS. BP STABLE. TF INFUSING @ GOAL, NO BM YET, PROVIDING BOWEL CARE MEDS. TEMP PROBE BRAVO DRAINING LIGHT YELLOW URINE. WILL CONTINUE TO MONITOR CLOSELY.
--- NOTE | 2021-07-19 22:03 | NUR ---
COMFORT CARE PTS SISTER LUAN CALLED AT 2145 ON 07/19/21. LORE HAS MADE THE DECISION TO TRANSITION TO COMFORT CARE. LUAN WOULD LIKE DR ADAME TO CONTACT HER ON THE MORNING OF 07/20/2021 AND DISCUSS THE PLAN WELL ALLOW TIME FOR FAMILY TO COME IN. LUAN CONTACT NUMBER: [phone]
[2021-07-20 03:36] LABS: Anion Gap 2 mmol/L (6-16); Blood Urea Nitrogen 28 mg/dL (8-24); CO2, Blood 38 mmol/L (21-32); Calcium, Blood 8.1 mg/dL (8.5-10.1); Chloride, Blood 106 mmol/L (98-108); Creatinine, Blood 0.67 mg/dL (0.60-1.20); Glomerular Filtration Rate >60 (60-); Glucose, Blood 217 mg/dL (70-99); Phosphorus, Blood 4.2 mg/dL (2.5-4.9); Potassium, Blood 3.6 mmol/L (3.5-5.5); Sodium, Blood 146 mmol/L (136-145)
--- NOTE | 2021-07-20 06:11 | NUR ---
SHIFT SUMMARY PT REMAINS INTUBATED AND OFF SEDATION. MEDICATED MULTIPLE TIMES c PRN ATIVAN AND DILAUDID. PT NOT TOLERATING TURNS TO RIGHT SIDE. PTS O2 SATS DECREASED MULTIPLE TIMES WHILE PT WAS GNAWING ON ETT AND c R SIDE TURNS. PT TAKES A SIGNIFICANT AMOUNT OF TIME TO RECOVER FROM DESATURATION, VENT SETTINGS CURRENTLY AC: 16/450/8/100% c O2 SATS OF >88%. PT INCONSISTENTLY ABLE TO SQUEEZE R HAND, NOT FOLLOWING OTHER COMMANDS. PLANS OF TRANSITIONING TO COMFORT CARE THIS AM.
--- NOTE | 2021-07-20 10:36 | NUR ---
FAMILY AT BEDSIDE PT SISTER LUAN AND MULTIPLE OTHER FAMILY AT BEDSIDE AT THIS TIME. PLANS TO MAKE PT COMFORT CARE AFTER FAMILY HAS BEEN ABLE TO VISIT WITH PT. DR ADAME AWARE OF PLANS FOR COMFORT CARE. NO ACUTE CHANGES IN PT CONDITION. WILL CONTINUE TO MONITOR.
--- NOTE | 2021-07-20 11:58 | NUR ---
Spiritual Care visit. Pt. is unresponsive. Four friends are present. Establish rapport. A couple friends are displaying evidence of grief. Provided a calming presence. Friends verbalize care for care of the pt. and spiritual care present for them.
--- NOTE | 2021-07-20 13:39 | NUR ---
Spoke with Caremanasad Fraire this AM. Family has elected to move forward with comfort care. Spoke with Primary RN Sukhjinder and discussed case. Pt resting in bed and intubated. Family at bedside. Engaged in therapeutic listening as Pt's sister Sheryl reports plan to withdraw care after everyone has had the oppurtunity to say good bye. She reports 2 more people are expected to come see him. Continued therapeutic listening and answered questions. Palliative Care will remain available.
--- NOTE | 2021-07-20 15:04 | NUR ---
EXTUBATION PT MADE COMFORT CARE. FAMILY AT BEDSIDE. NICKI, PALLIATIVE CARE RN AT BEDSIDE FOR FAMILY SUPPORT. RT EXTUBATED PT AT 1458.
--- NOTE | 2021-07-20 15:22 | NUR ---
TIME OF PT WITH DECREASED RESPIRATORY DRIVE. SPO2 AND HR DECLINED RAPIDLY. PT MED WITH MORPHINE PER EMAR FOR AIR HUNGER. FAMILY REMAINED AT BEDSIDE. NO HEART TONES AUSCULTATED. TIME OF 1517. DR WILLIAM AND DR ADAME NOTIFIED. PT FAMILY REQUESTS [facility]. ALL PT BELONGINGS TO BE SENT HOME WITH FAMILY.
--- NOTE | 2021-07-20 15:28 | NUR ---
Supportive visit. Family elects comfort care. RT and Primary RN Sukhjinder extubates. Pt was premedicated for comfort. Family at bedside and Pt passes away peacefully. Offered condolences. Family chooses [facility]. Family appears to be grieving appropriately. Palliative Care will remain available.
== END 2021-07-20 16:35 | DRG 870 ==
LOC: ER 13:23 → ICUW 15:04 → ICUE 15:04
PROVIDERS: Emergency Medicine; Family Medicine; Internal Medicine; Internal Medicine Critical Care Medicine; Internal Medicine Nephrology; ADMIT Family Medicine
PROC: 5A1955Z Respiratory Ventilation, Greater than 96 Consecutive Hours (ICD-10-PCS; 2021-07-08)
PROC: 0BH17EZ Insertion of Endotracheal Airway into Trachea, Via Natural or Artificial Opening (ICD-10-PCS; 2021-07-08)
PROC: 05H933Z Insertion of Infusion Device into Right Brachial Vein, Percutaneous Approach (ICD-10-PCS; 2021-07-08)
PROC: 3E033XZ Introduction of Vasopressor into Peripheral Vein, Percutaneous Approach (ICD-10-PCS; 2021-07-08)
PROC: 5A12012 Performance of Cardiac Output, Single, Manual (ICD-10-PCS; principal; 2021-07-20)
DX: A41.01 Sepsis due to Methicillin susceptible Staphylococcus aureus (principal); E11.10 Type 2 diabetes mellitus with ketoacidosis without coma; E43 Unspecified severe protein-calorie malnutrition; J96.01 Acute respiratory failure with hypoxia; Z66 Do not resuscitate; Z51.5 Encounter for palliative care; N17.9 Acute kidney failure, unspecified; E87.0 Hyperosmolality and hypernatremia; M60.08 Infective myositis, other site; R64 Cachexia; G92.8 Other toxic encephalopathy; Z20.822 Contact with and (suspected) exposure to COVID-19; E86.0 Dehydration; E87.6 Hypokalemia; N18.2 Chronic kidney disease, stage 2 (mild); R00.1 Bradycardia, unspecified; R65.20 Severe sepsis without septic shock; D69.6 Thrombocytopenia, unspecified; D75.839 Thrombocytosis, unspecified; Z78.1 Physical restraint status; I46.9 Cardiac arrest, cause unspecified; E11.42 Type 2 diabetes mellitus with diabetic polyneuropathy; E88.09 Other disorders of plasma-protein metabolism, not elsewhere classified; E11.22 Type 2 diabetes mellitus with diabetic chronic kidney disease; F15.10 Other stimulant abuse, uncomplicated; I12.9 Hypertensive chronic kidney disease with stage 1 through stage 4 chronic kidney disease, or unspecified chronic kidney disease; D63.1 Anemia in chronic kidney disease; E78.5 Hyperlipidemia, unspecified; Z68.20 Body mass index [BMI] 20.0-20.9, adult; Z91.14 Patient's other noncompliance with medication regimen; Z79.899 Other long term (current) drug therapy; Z79.84 Long term (current) use of oral hypoglycemic drugs
CPT/HCPCS: 0241U; 31500; 36415; 36430; 36569; 36620; 51702; 70450; 70470; 71045; 71250; 71260; 74176; 74177; 76705; 80047; 80048; 80053; 80069; 80202; 81001; 82010; 82140; 82247; 82248; 82533; 82550; 82570; 82803; 82947; 83036; 83605; 83615; 83690; 83735; 83930; 83935; 84075; 84100; 84132; 84145; 84295; 84300; 84478; 84484; 84681; 85014; 85018; 85025; 85049; 85610; 85730; 86850; 86900; 86901; 86923; 87040; 87070; 87077; 87086; 87147; 87186; 87205; 93005; 93010; 93306; 93312; 93325; 94002; 94003; 95819; 96365-59; 96366-59; 96375-59; 96376-59; 99285-25; A9270; C1751; C1769; C1894; C9113; G0480; J0171; J0330; J0690; J0696; J1170; J1650; J1815; J1940; J2060; J2250; J2270; J2310; J2704; J3010; J3370; J3480; J7030; J7040; J7042; J7050; J7060; J7070; J7120; P9016; P9045; Q9967; U0004